=== PATIENT | male | born 2000 | race Caucasian/White ===

== ENCOUNTER → 2021-06-13 16:48 | Outpatient (CLI) | payer SELFPAY | PROVIDERS: PCP Family Medicine; Visit Provider Nurse Practitioner | DX: Z20.822 Contact with and (suspected) exposure to COVID-19 (principal) | CPT/HCPCS: C9803; U0003; U0005 ==

== ENCOUNTER 2022-10-22 19:21 | Emergency (ER) | payer BC, SELFPAY ==
[2022-10-22 19:35] VITALS: BP 126/68; PULSE 72; RESP 21; TEMP 36.5; O2SAT 97; BMI 28.8
--- NOTE | 2022-10-22 19:51 | EXP.UTC ---
Discharge Plan Disposition Patient Disposition: Home, Self-Care Condition: Good Prescriptions Prescriptions: New azithromycin [Zithromax Z-Catalino] 250 mg tablet See Rx Instructions .ROUTE .COMPLEX 5 Days Qty: 6 0RF Rx Instructions: For 250 mg dose pack: take 500 mg today (day 1), then 250 mg for 4 days (days 2-5) methylprednisolone [Medrol (Catalino)] 4 mg tablets,dose pack See Rx Instructions .Route .COMPLEX 6 Days Qty: 21 0RF Rx Instructions: taper pack; Referrals Follow up/Referrals: Emily Whitley [Primary Care Provider] - See instructions Activity Restrictions/Add. Instructions Additional Instructions/Restrictions: *Monitor Temp, Over the counter Motrin or Tylenol as directed/as needed Tylenol every 4 hours and Motrin every 6 hours (as long as your family doctor has told you that you can take it) for fever or pain. and straight to ER if unable to lower temp less than 101.0 after medication given *Warm salt water gargles may help to soothe the throat *Throat Lozenges? *Warm fluids like tea with honey may help to soothe the throat? *Sleep elevated *Humidifier/Vaporizer Make sure to go straight ER if any life threatening symptoms, stiffness in neck or confusion Your throat swab was sent for culture. Those results are typically sent to your primary care. Be sure to follow up in 2-3 days with your family doctor/primary care physician if no improvement so they can review those result and treat if necessary. If you don?t have a primary care doctor, I recommend you get one but in the mean time, you will have to return to a walk in clinic Follow up IMMEDIATELY for new or worsening symptoms or no Noticeable improvement over the next 48-72 hours. 911 for difficulty breathing or swallowing You were tested for today for Upper Respiratory Panel with COVID19 your test result should be back in the next 24-48 hours, you may check your results on the [facility] My Health Portal Clinical Impressions Clinical Impression: Sinusitis Qualifiers: Sinusitis location: unspecified location Chronicity: unspecified Qualified Code(s): J32.9 - Chronic sinusitis, unspecified Stand Alone Forms Stand Alone Forms: Work/School Release Instructions Patient Instructions: Sinusitis, DI for Sinusitis Discharge ED Provider: Chantell Bustamante [facility] [place] General Stated complaint: sore throat, jasmin Mode of Arrival: Ambulatory Source of Information: Patient Limitations: No Limitations Time Seen by Provider: 10/22/22 19:51 Description of Symptoms (Recalled from Triage Doc. by RN): PATIENT C/O HEADACHE, CONGESTION, CHILLS, SORE THROAT AND BODY ACHES THAT STARTED TODAY HEENT Symptoms (Recalled from RN notes): Yes Resp Symptoms (Recalled from RN notes): No Skin Symptoms (Recalled from RN notes): No MS Symptoms (Recalled from RN notes): No Functional Status (Recalled from RN notes): WNL History of Present Illness Provider Complaint: Patient states that he has been having sinus congestion and pressure for about a week on and off but Patient states that he woke up not feeling well States that he has been feeling achy, tired, body aches, headache, sore throat and chills and little dizziness here and there since this morning States that he has been feeling fatigued and over all not feeling well today and slept on and off most of the day States that he hasnt had fever that he is aware of but not checked it either States that he was around someone last week that had some kind of flu Related Data Previous Rx's Medication Instructions Recorded azithromycin 250 mg tablet See Rx Instructions PO .COMPLEX 5 10/22/22 (Zithromax Z-Catalino) days #6 tabs methylprednisolone 4 mg tablets in See Rx Instructions .Route 10/22/22 a dose pack (Medrol (Catalino)) .COMPLEX 6 days #21 tabs Allergies Allergy/AdvReac Type Severity Reaction Status Date / Time codeine Allergy Verified 10/22/22 19:51 diphenhydramine Allergy Verified 10/22/22 19:
[2022-10-22 20:02] LABS: UTC Strep Screen (Rapid) Negative (Negative)
[2022-10-22 20:05] VITALS: BP 126/68; PULSE 72; RESP 21; TEMP 36.5; O2SAT 97
[2022-10-22 20:05] LABS: Monoscreen (Rapid) Negative (Negative)
[2022-10-22 20:37] LABS: Bordetella Pertussis Not Detected (NotDetected); Chlamydophila Pneumoniae, PCR Not Detected (NotDetected); Coronavirus 19, PCR Not Detected (NotDetected); Coronavirus 229E Not Detected (NotDetected); Coronavirus NL63 Not Detected (NotDetected); Coronavirus OC43 Not Detected (NotDetected); Coronovirus HKU1,PCR Not Detected (NotDetected); Human Metapneumovirus Not Detected (NotDetected); Influenza A, PCR Not Detected (NotDetected); Influenza AH1, 2009 Not Detected (NotDetected); Influenza AH1, PCR Not Detected (NotDetected); Influenza AH3,PCR Not Detected (NotDetected); Influenza B, PCR Not Detected (NotDetected); Mycoplasma Pneumoniae, PCR Not Detected (NotDetected); Parainfluenza 1, PCR Not Detected (NotDetected); Parainfluenza 2, PCR Not Detected (NotDetected); Parainfluenza 3, PCR Not Detected (NotDetected); Parainfluenza 4, PCR Not Detected (NotDetected); Respiratory Syncytial Virus Not Detected (NotDetected)
[2022-10-22 20:38] LABS: Adenovirus,PCR Not Detected (NotDetected)
[2022-10-23 03:19] LABS: Rhinovirus/Enterovirus Detected (NotDetected)
== END 2022-10-22 20:31 | disposition home or self-care (01) ==
PROVIDERS: Emergency Provider Nurse Practitioner; PCP Family Medicine
DX: J32.9 Chronic sinusitis, unspecified (principal); B34.1 Enterovirus infection, unspecified
CPT/HCPCS: 86318; 87581; 87632; 87798; 87880; 99212; 99213; C9803; G0463; U0003; U0005

== ENCOUNTER 2025-08-06 22:03 | Emergency (ER) | payer BC, SELFPAY ==
--- OUTSIDE RECORDS SUMMARY | 2023-07-21 03:15 | XMS_ITS | Continuity of Care Document ---
Author Organization [facility] Address [address] [place] [address] Phone Care Team Providers Care Associate Professor Of Philosophy Name Role Phone Gama OD, Clair Unavailable Unavailable Allergies, Adverse Reactions, Alerts Substance Reaction Status Criticality DIPHENHYDRAMINE HCL Active No Infor mation penicillin G Active No Information PROCHLORPERAZINE MALEATE Active No Information PROCHLORPERAZINE EDISYLATE Active N o Information prochlorperazine Active No Informat ion codeine Active No Information Sulfa (Sulfonamide Antibiotics) Active No Information Medications Medication Instructions Dosage Effective Dates (start - stop) Status Comments No Drug Therapy Prescribed Procedures Procedure Date Cl Fit Basic REFRACTION COMPREHENSIVE EYE EXAM ESTAB PATIENT Jun REFRACTION COMPREHENSIVE EYE EXAM ESTAB PATIENT Jun OFFICE/OUTPATIENT VISIT, EST Advance Directives Directive Yes / No Effective Date File Name No Information Encounters Encounter Description Practice Location Reason(s) For Visit Diagnoses Date Provider Providers Copied on Encounter [facility], [address] [place], [place] [address], [address], tel:[phone] [facility] complete eye exam (chief complaint) Regular astigmatism of both eyes Oct-2 3 Malloy OD Clair. [address] [place], [place] [address], [place], [id number] , . tel:[phone] Referring Provider: Clair Malloy OD, [address] [place], [place] [address], [address] . tel:[phone] [facility], [address] [place] [address], [place], [facility], tel:[phone] [facility] blurry vision (chief complaint) Myopia, bilateralRegular astigmatism of both eyes Oct- 2 Malloy OD Clair. [address] [place] [address], [place] [address], [facility], [place], [address] [place] [address] , . tel:[phone] Referring Provider: Clair Malloy OD, [address], [facility] [place], [address] . tel:[phone] OFFICE/OUTPA TIENT VISIT, [facility], [address] [place] [address], [facility], [place], [facility], tel:[phone] [facility] Pain (chief complaint) Conjunctivitis, bacterial Sep- 2 Malloy OD Clair. [address], [place] [address], [facility], [place], [address] [place] [address] , . tel:[phone] Referring Provider: Clair Malloy OD, [address], [place], [address] . tel:[phone] Family History Family Member Type Diagnosis Age At Onset Mother Problem Diabetes mellitus Payers Payer name Insurance type Covered alliance party ID Lexus hastings(s) Shanna [facility] [id number] Social History Type Description Quantity Date Captured Comments Alcohol Use Details Unknown Caffeine Use Details Unknown Tobacco Use Status Current non-smoker Smoking Status Never smoker Non-Smoking Tobacco Use Details : No Details Available : No Details Available Sex Male Chief Complaint And Reason For Visit From encounter dated '07/21/2023 08:15'. complete eye exam (chief complaint). Description: The 22 year old patient presents for evaluation in the right eye and left eye. pt states his distance is a little blurry but has always been that way, pt is looking into getting contacts, he's had contacts before but it only was for about a week b/c he had to constantly use gtts for dry eyes, he does see flashes and floaters occasionally, he sees glares at nighttime occasionallydenies-headaches Reason For Referral Reason For Referral No Information Plan Of Treatment Date Type Action Status Patient Education Learning About Your Eye s completed Patient Education Learning About Your Eye s completed Patient Education Learning About Vision T ests completed History Of Present Illness Encounter Date Complaint History Of Prese nt Illness complete eye exam The 22 year ol d patient presents for evaluation in the right eye and left eye. pt states his distance is a little blurry but has always been that way, pt is looking into getting contacts, he's had contacts before but it only was for about a week b/c he had to constantly use gtts for dry eyes, he does see flashes and floaters occasionally, he sees glares at nighttime occasionallydenies-headaches blurry vision The 21 year old male presents for evaluation of blurry vision in the right eye and left eye. It started about 1 year(s) ago. It affects distance vision. The symptom is with glasses. The condition is unstable. The condition is described as blurring. Pt states NVA is stable. Pt states current glasses are broken. Pt states having flashes for many years. Pt states having floaters occasionally. Patient denies: eye pain. Pt states itching due to seasonal allergies. Pt denies redness, burning and tearing. Pt denies gtts. Pain The 21 year old female presents for evaluation of Pain in the right eye. It started 2 weeks ago. Pt states his right eye is in pain, itching, and tearing. Pt states there might be discharge coming from it. It effects vision and causes blurriness in OD. Patient denies: flashes, floaters and halos. Functional Status Date Functional Assessmen t No Information Medications Administered Medication Instructions Dosage Effective Dates (start - stop) Status Comments No Drug Therapy Prescribed Instructions Date Instruction Additional Infor rosas CALL OFFICE W ANY [facility] [address] MALLOY Related to Regular astigmatism of both eyes Impression/Plan Related to Regul ar astigmatism of both eyes Impression/Plan Related to Myopi a, bilateral Impression/Plan Related to Regul ar astigmatism of both eyes Impression/Plan Related to Conju nctivitis, bacterial Assessments Type Assessment Date assessment Regular astigmatism of both eyes impression Regular astigmatism of both eyes : H52.223 Patient Care Teams Name Effective Dates (start - stop) Status Members No Information
--- OUTSIDE RECORDS SUMMARY | 2024-01-25 08:35 | XMS_ITS | Encounter Summary ---
Author [facility] Address [address] [place] [phone] Care Team Providers Care Machine Plug Shaper Name Role Phone Provider, No Known Primary Care Provider Unavail able Encounter Details Date Type Department Care Team (Latest Contact Info) Description 01/25/2024 9:35 AM EDT Hospital Encounter [facility] PRIMARY CARE [address] [...] Results * XR Knee 3+ View With [place] Right (01/25/2024 9:46 AM EDT) Anatomical Region Laterality Modality Lower Extremities, Knee Right Computed Radiography 01/25/2024 3:49 PM EDT Impressions 01/25/2024 3:49 PM EDT Impression: Negative. Electronically Signed: Ce Peoples MD 01/25/2024 3:49 PM EDT Workstation ID: [id number] Narrative 01/25/2024 3:49 PM EDT XR KNEE [...] MD 01/25/2024 3:49 PM EDT Workstation ID: [id number] Jeffrey POP IMG DIAGNOSTIC IMAGING ORDER CARINA Final Result documented in this encounter Visit Diagnoses Diagnosis Acute pain of right knee documented in this encounter Care Teams Machine Plug Shaper Relationship Specialty Start Date End Date Provider, [place] [address] PCP - General 01/25/24 documented as of this encounter
--- OUTSIDE RECORDS SUMMARY | 2025-07-20 06:20 | XMS_ITS | Encounter Summary ---
Author Organization Healthcare Address [address] 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 Name Role Phone Leandra Kim APRN Primary Care Provider [phone] Reason for Referral * Consultation (Routine) - Authorized Specialty Diagnoses / Procedures Referred By Garima cobb Referred To Contact Sleep Medicine Diagnoses Restless sleeper Chronic fatigue Snores Sleep walking and eating Leandra Kim APRN [address] [facility] [address] [place] [address] Phone: tel: fax: Johnathan Rogers, DO [address] [place] [address] Phone: tel: fax: Referral ID Status Reason Start Date Expiration Date Visits Requested Visits Authorized [id number] Authorized Specialty Services Required 5 01/19/2027 1 1 Reason for Visit * Reason Comments Establish Care Sleep issues for awh ile and slow heart rate that no one can tell him why Encounter Details Date Type Department Care Team (Latest Contact Info) Description 07/20/2025 7:20 AM EDT Office Visit [facility] [address] [place] [address] Leandra Kim APRN [address] [place] [address] Healthcare maintenance (Primary Dx); Health care maintenance; Encounter for HCV screening test for low risk patient; Screening for human immunodeficiency virus; Insulin resistance; Dyspepsia; Restless sleeper; Chronic fatigue; Snores; Sleep walking and eating Social History Tobacco Use Types Packs/Day Years Used Date Smoking Tobacco: Never Smokeless Tobacco: Current Chew Tobacco Cessation:Ready to Q uit: No; Counseling Given: Yes Comments:Currently using nicotine pouches, slowly decreasing nicotine content Alcohol Use Standard Drinks/Week Comments Yes 1 (1 standard drink = 0.6 oz pur e alcohol) Rarly PHQ-2 Answer Date Recorded Patient Health Questionnaire-2 Score 0 07/20/2025 PHQ-9 Answer Date Recorded Patient Health Questionnaire-9 Score 3 07/20/2025 Humiliation, Afraid, Rape, and Kick questionnair e Answer Date Recorded Within the last year, have y ou been afraid of your partner or ex-partner? No 04/27/2025 Within the last year, have y ou been humiliated or emotionally abused in other ways by your partner or ex-partner? No Within the last year, have y ou been kicked, hit, slapped, or otherwise physically hurt by your partner or ex-partner? No 04/27/2025 Within the last year, have y ou been raped or forced to have any kind of sexual activity by your partner or ex-partner? No 04/27/2025 Hunger Vital Sign Answer Date Recorded Within the past 12 months, y ou worried that your food would run out before you got the money to buy more. Never true 04/27/20 25 Within the past 12 months, t he food you bought just didn't last and you didn't have money to get more. Never true 04/27/2025 PRAPARE - Transportation Answer Date Re corded In the past 12 months, has l ack of transportation kept you from medical appointments or from getting medications? No 03/30 In the past 12 months, has l ack of transportation kept you from meetings, work, or from getting things needed for daily living? No 04/27/2025 Housing Stability Vital Sign Answer Brendan e Recorded In the last 12 months, was t here a time when you were not able to pay the mortgage or rent on time? No 04/27/2025 In the past 12 months, how m any times have you moved where you were living? 1 04/27/2025 At any time in the past 12 m [facility], were you homeless or living in a long term (including now)? No 04/27/2025 Safety and Environment Answer Date Asad rded Do you worry that your child may have been physically abused? No 04/27/2025 Do you worry that your child may have been sexua lly abused? No 04/27/2025 Are there any guns kept in o r around your home or where your child spends time? No 04/27/2025 Guns Unloaded or Locked Away Not on file Utilities Answer Date Recorded In the past 12 months has [employer], gas, oil, or water [employer] threatened to shut off services in your home? No 04/27/2025 PHQ-2A Answer Date Recorded Patient Health Questionnaire-2 Score 4 08/26/2023 Comments No Sex and Gender Information Value Date Recorded Sex Assigned at Female 05/18/2023 2:03 PM EDT Legal Sex Male 6:47 AM EDT Gender Identity Transgender Male 05/18/2023 2:03 PM EDT Sexual Orientation Not on file documented as of this encounter Last Filed Vital Signs Vital Sign Reading Time Taken Comments Blood Pressure 112/75 07/20/2025 7:30 AM EDT Pulse 85 07/20/2025 7:30 AM EDT Temperature 36.7 C (98.1 F) 07/20/2025 7:30 AM EDT Respiratory Rate - - Oxygen Saturation 99% 07/20/2025 7:30 AM EDT Inhaled Oxygen Concentration - - Weight 85 kg (187 lb 6.3 oz) 07/20/2025 7:30 AM EDT Height 170.2 cm (5' 7 ) 07/20/2025 7:30 AM EDT Body Mass Index 29.35 07/20/2025 7:30 AM EDT documented in this encounter Functional Status * Over the past 2 weeks, how often have you been bothered by any of the following problems? Question Answer Date of Assessment Author Little interest or pleasure in doing things Not at all 07/20/2025 7:33 AM EDT Johnathan Taveras Feeling down, depressed, or hopeless Not at all 07/20/2025 7:33 AM Johnathan Lee Patient Health Questionnaire -2 Score 0 07/20/2025 7:33 AM Johnathan Lee * Question Answer Date of Assessment Author Trouble falling or staying asleep, or sleeping too much More than half the days 07/20/2025 7:33 AM Johnathan Lee Feeling tired or having little energy Several days 07/20/2025 7:33 AM Johnathan Lee Poor appetite or overeating Not at all 07/20/2025 7:33 AM Johnathan Lee Feeling bad about yourself - or that you are a failure or have let yourself or your family down Not at all 07/20/2025 7:33 AM Johnathan Lee Trouble concentrating on things, such as reading the newspaper or watching television Not at all 07/20/2025 7:33 AM Johnathan Lee Moving or speaking so slowly that other people could have noticed? Or the opposite - being so fidgety or restless that you have been moving around a lot more than usual. Not at all 07/20/2025 7:33 AM Johnathan Lee Thoughts that you would be better off or hurting yourself in some way Not at all 07/20/2025 7:33 AM Johnathan Lee Patient Health Questionnaire-9 Score 3 07/20/2025 7:33 AM Johnathan Lee * Calculated C-SSRS Risk Score (Lifetime/Recent) Answer Date of Assessment Author No Risk Indicated 07/20/2025 7:36 AM Johnathan Lee * How difficult have these problems made it for you to do your work, take care of things at home, or get along with other people? Answer Date of Assessment Author Not difficult at all 07/20/2025 7:33 AM Johnathan Nayak * Question Answer Date of Assessment Author 1. Wish to be (Past 1 Month) No 7:36 AM Johnathan Lee 2. Non-Specific Active Suici concetta Thoughts (Past 1 Month) No 07/20/2025 7:36 AM Johnathan Lee 6. Suicidal Behavior (Lifetime) No 7:36 AM Johnathan Lee documented as of this encounter Miscellaneous Notes * Progress Notes - Leandra Kim, BROWN STOCK WASHER - 07/20/2025 7:20 AM EDT Subjective Tyler Sanchez 24 yo transgender male Preferred pronouns he/him History of Present Illness Mr. Sanchez is 24 y.o. adult who presents today as a new patient to establish care. PMH significant for: Gastritis, Glenoid Labrum Tear, Closed Fx left proximal humerus (skate board accident), Gender Dysphoria, Hypogonadism, Mood Disorder PSH-Hysterectomy, Mastectomy, Reading Teeth, Cholecystectomy, Lt Knee Arthroscopy FH-Mother DM, Mental Illness, CVA, Depression; MGM DM, CKD; MGF DM SH- Smoking/vaping/chewing-Currently nicotine pouches, 9 mg/pouch (down from 30 mg/pouch) ETOH-rarely Recreational Drugs-none Marital status: single Sexually active w/ male/female partners in the past, not currently STI testing not desired Children-none Mood described as good, feels stable PHQ-9 score 3, not difficult at all FRANCESCO-7 score 4, somewhat difficult Counseling-none currently, feels well supported w/ family and friends. He has been under the care of Dr. Beth at [facility] for his transition and primary care needs, with his last visit occurring a few months ago. 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 No recent dental visits, has insurance for care. His last eye exam was 3 to 4 years ago, and he acknowledges the need for new glasses. He does not usually get the flu vaccine because he doesn't usually pursue it. He is not taking any other Rx medications besides testosterone but has started taking a multivitamin, magnesium, fish oil, and ashwagandha supplements. He has been experiencing intermittent bradycardia, with heart rates dropping into the 30s as recorded by his watch and a heart monitor worn for 2 weeks. This occurred during his second shift supervisor work hours when he was awake. A few months ago, he was sent to the hospital due to an alert from his watch indicating possible atrial fibrillation (A-fib). He was referred to a unix system administrator at [facility], where he underwent an echocardiogram and was placed on another heart monitor. He does not plan to revisit this unix system administrator. He occasionally snores and never feels rested after sleep, leading to constant fatigue. Despite high caffeine intake, he remains tired and often needs to nap. He does not worry about falling asleep while driving. He experiences intermittent headaches upon waking and is unaware of any teeth clenching or grinding. He has lost weight recently due to dietary changes and gym workouts. A sleep study conducted last year showed no GÉNESIS, but no cause was identified was identified for his fatigue and sleep struggles. He reports sleep walking and eating. He has restless legs and has tried various sleep aids, including melatonin and prescription medications, without success. These either do not work or cause prolonged sleep of 12 to 18 hours. His sleep did not improve while on mood medications. His sleep pattern varies, sometimes waking up every hour or two, and other times sleeping through the night. He experiences stomach pain after eating, along with heartburn and cramping, described as chronic. Despite undergoing endoscopy and colonoscopy, no abnormalities were found. The last scope was performed 4 to 5 years ago when he was 20. He is unsure if he was tested for H. pylori. Buspirone did not alleviate his stomach symptoms. 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 Visit Vitals OB Status Injection Smoking Status Never Past Medical History[1] Surgical History[2] Family History[3] Social History Substance and Sexual Activity Sexual Activity Yes Partners: Nonbinary Tobacco Use History[4] Current Outpatient Medications Medication Instructions albendazole (Albenza) 200 MG tablet Take 1 tab PO now; take 2nd in 2 weeks busPIRone (BUSPAR) 15 mg, Oral, 2 times daily diclofenac (VOLTAREN) 2-4 g, Transdermal, 3 times daily, Apply as directed to left elbow DULoxetine (CYMBALTA) 30 mg, Oral, Daily, Do not crush or chew. lamoTRIgine (LAMICTAL) 100 mg, Oral, Daily Needle, Disp, 21G X 1 misc Use to draw up hormone as directed Syringe/Needle, Disp, (B-D 3CC LUER-OLVIN SYR 25GX5/8 ) 25G X 5/8 3 ML misc Use to inject hormone asdirected testosterone cypionate (Depo-Testosterone) 200 MG/ML injection Inject 60mg (0.3mL) subcutaneous every weeks Allergies[5] Medications Reviewed MIPS/MU:[id number]:: All medications have been reviewed today. Review of Systems Constitutional: Positive for fatigue. HENT: Negative. Respiratory: Negative. Cardiovascular: Negative. Gastrointestinal: See HPI Genitourinary: Negative. Musculoskeletal: Negative. Neurological: Negative. Psychiatric/Behavioral: Positive for sleep disturbance (see HPI). Objective There were no vitals filed for this visit. Physical Exam Vitals and nursing note reviewed. Constitutional: General: He is not in acute distress. Appearance: Normal appearance. He is normal weight. He is not ill-appearing. HENT: Head: Normocephalic and atraumatic. Right Ear: Tympanic membrane, ear canal and external ear normal. Left Ear: Tympanic membrane, ear canal and external ear normal. Mouth/Throat: Mouth: Mucous membranes are moist. Comments: Mallampati II/IV Eyes: General: No scleral icterus. Conjunctiva/sclera: Conjunctivae normal. Pupils: Pupils are equal, round, and reactive to light. Neck: Thyroid: No thyroid mass, thyromegaly or thyroid tenderness. Cardiovascular: Rate and Rhythm: Normal rate and regular rhythm. Heart sounds: Normal heart sounds. Comments: Neg for peripheral edema Pulmonary: Effort: Pulmonary effort is normal. Breath sounds: Normal breath sounds. Abdominal: General: Abdomen is flat. Bowel sounds are normal. There is no distension. Palpations: Abdomen is soft. Tenderness: There is no abdominal tenderness. Musculoskeletal: General: Normal range of motion. Cervical back: Normal range of motion and neck supple. Lymphadenopathy: Cervical: No cervical adenopathy. Skin: General: Skin is warm and dry. Capillary Refill: Capillary refill takes less than 2 seconds. Neurological: General: No focal deficit present. Mental Status: He is alert and oriented to person, place, and time. Psychiatric: Mood and Affect: Mood normal. Behavior: Behavior normal. Thought Content: Thought content normal. Judgment: Judgment normal. Assessment & Plan Overall well appearing. 1. Bradycardia. - Intermittent, asymptomatic bradycardia is not typically concerning, and is not uncommon during sleep or with higher levels of physical conditioning. -Given his age and structurally normal heart, atrial fibrillation is unlikely. - The absence of symptoms such as dizziness or presyncope suggests that this is not an urgent issue. - A release of records will be obtained from [facility] for further evaluation. 2. Suspected sleep disorder. - The patient reports occasional snoring, never feeling rested after sleep, and always feeling tired. - A referral to sleep medicine will be made for further evaluation for sleep disorder other than GÉNESIS. 3. Dyspepsia - The patient experiences stomach pain and cramping after eating, with occasional heartburn. - A stool sample will be collected for H. pylori testing. - If the result is negative, the patient may consider starting Elavil or Bentyl to alleviate abdominal symptoms. 4. Health maintenance. - The patient is advised to receive the influenza vaccine when available. A comprehensive set of labs will be ordered, including blood counts, metabolic panel, kidney and liver function tests, electrolytes, folate, A1c, hepatitis A and B immunity status, hepatitis C and HIV screening, iron, cholesterol, thyroid, B12, and D levels. The patient is also advised to discontinue fish oil prior to any surgical procedures due to its potential to increase bleeding risk. -Counseled on good dental hygiene and routine preventive dental care, especially with use of nicotine (chew or pouches currently). Encouraged in his efforts at reduction, and complete cessation advised. -Flu IMZ at his discretion if desired. -He will continue w/ the [facility] for his testosterone. -Mood stable off meds, will continue to monitor. Follow-up: The patient will follow up in 3 to 4 months to above issues. Verbalizing understanding and agreement w/ plan. Verbal consent was obtained to use ambient listening technology to assist in the documentation of the encounter: yes Leandra Kim APRN [1] No past medical history on file. [2] Past Surgical History: Procedure Laterality Date HYSTERECTOMY Bilateral [3] Family History Problem Relation Name Age of Onset Depression Mother Sheryl Diabetes Mother Sheryl Learning disabilities Mother Sheryl Mental illness Mother Sheryl Stroke Mother Sheryl Diabetes Maternal Grandfather Aiden Diabetes Maternal Grandmother Karla Kidney disease Maternal Grandmother Karla [4] Tobacco Use Smoking Status Never Smokeless Tobacco Current Types: Chew Tobacco Comments Currently chews tobacco [5] Allergies Allergen Reactions Benadryl [Diphenhydramine] Other - please document in the comment field Excessive hyperactivity Codeine Itching Penicillins Itching and Nausea And Vomiting Prochlorperazine Other - please document in the comment field akathesia Gets severely agitated Sertraline Hallucinations and Other - please document in the comment field Anger and auditory hallucinations Sulfa Drugs Hives, Shortness of breath and Swelling Oxycodone-Acetaminophen Nausea And Vomiting Latex Rash documented in this encounter Plan of Treatment Upcoming Encounters Date Type Department Care Team (Late st Contact Info) Description 11/20/2025 9:00 AM EST Office Visit [facility] [address] [place] [address] Leandra Kim APRN [address] [facility] [address] [place] [address] Scheduled Orders Name Type Priority Associated Diagnoses Orde r Schedule Helicobacter pylori Antigen Microbiology Routine Dyspepsia Expected: 07/20/2025 (Approximate), Expires: 01/21/2027 Scheduled Referrals Name Type Priority Associated Diagnoses Order Schedule Ambulatory referral to Adult Sleep Medicine Outpatient Referral Routine Restless sleeper Chronic fatigue Snores Sleep walking and eating Expected: 07/20/2025 (Approximate), Expires: 01/18/2027 documented as of this encounter Results * Hemoglobin A1c (08/01/2025 8:40 AM EST) Hemoglobin A1c 5.3 <5.7 % 08/01/2025 5:15 PM EST [facility] Blood Venous blood specimen / Unknown Venipuncture / Unknown 08/01/2025 8:40 AM EST 08/01/2025 1:48 PM EST Narrative [facility] - 08/01/2025 5:15 PM EST HA1C Interpretive Data: Diagnosis of Diabetes: Diabetic > or = 6.5% Pre-diabetic 5.7 to 6.4% Non-diabetic < or = 5.6% Glycemic Targets for Type I and Type II Diabetics: Non- Adults <7.0% Adults <6.0% Children and Adolescents <7.5% Source: [place] [employer]. Standards of medical care in diabetes,2017. Diabetes Care.2017:40 (suppl 1):S1-S135. [facility] BLOOD ORDERABLES Final Re sult Performing Organization Address [facility] Co de Phone Number [facility] [address] [place] [address] * Vitamin D 25 Hydroxy (08/01/2025 8:40 AM EST) Vitamin D 25 Hydroxy 45.5 20.0 - 80.0 ng/mL 08/01/2025 2:55 PM EST [facility] Blood Venous blood specimen / Unknown Venipuncture / Unknown 08/01/2025 8:40 AM EST 08/01/2025 1:46 PM EST Narrative [facility] - 08/01/2025 2:55 PM EST Testing performed on [employer] Collateral Clerk, standardized against NIST SRM 2972. When testing samples from patients whose predominant form of vitamin D is vitamin D2, such as patients receiving vitamin D2 supplementation, results that are subtherapeutic should be confirmed with another method, such as LC-MS/MS, before being used for patient management. Vitamin D, 25-Hydroxy reference range, age 18 years and up: Deficiency: <12 ng/mL Insufficiency: 12 to 19 ng/mL Sufficiency: 20 to 80 ng/mL Possible toxicity: >100 ng/mL [facility] LAB BLOOD ORDERABLES Final Re sult Performing Organization Address [facility] Co de Phone Number [facility] [address] [place] [address] * Vitamin B12, Serum (08/01/2025 8:40 AM EST) Vitamin B12, Serum 907 210 - 1,033 pg/mL 08/01/2025 2:35 PM EST [facility] Blood Venous blood specimen / Unknown Venipuncture / Unknown 08/01/2025 8:40 AM EST 08/01/2025 1:53 PM EST [facility] BR[employer] STOCK WASHER LAB BLOOD ORDERABLES Final Re sult Performing Organization Address [facility]/ZIP Co de Phone Number [facility] [address] [place] [address] * TSH Reflex FT4 (08/01/2025 8:40 AM EST) Thyroid Stimulating Hormone, Plasma 1.67 0.40 - 4.20 uIU/mL 08/01/2025 2:17 PM EST [facility] Blood Venous blood specimen / Unknown Venipuncture / Unknown 08/01/2025 8:40 AM EST 08/01/2025 1:47 PM EST [facility] LAB BLOOD ORDERABLES Final Re sult Performing Organization Address City/[facility]/ZIP Co de Phone Number [facility] [address] [place] [address] * (ABNORMAL) Lipid Profile, Plasma (08/01/2025 8:40 AM EST) Cholesterol, Plasma 194 <200 mg/dL 08/01/2025 2:17 PM EST [facility] Comment: Cholesterol Reference Range (age >17 years): Desirable <200 mg/dL Borderline 200 to 239 mg/dL Undesirable >239 mg/dL HDL 75 >=40 mg/dL 08/01/2025 2:17 PM EST [facility] Comment: HDL Cholesterol Reference Ranges (age >17 years): Female, acceptable > or = 50 mg/dL Male, acceptable > or = 40 mg/dL Triglycerides, Plasma 25 <150 mg/dL 08/01/2025 2:17 PM EST [facility] Comment: Triglyceride Reference Range (age >17 years): Desirable: <150 mg/dL Borderline high: 150 to 199 mg/dL High: 200 to 499 mg/dL Very high: >499 mg/dL Increased risk of pancreatitis: >1000 mg/dL Cholesterol/HDL Ratio 3 08/01/2025 2:17 PM EST [facility] LDL, Calculated 114(H) <100 mg/dL 2:17 PM EST [facility] Comment: LDL Cholesterol Reference Range (age >17 years): Optimal: <100 mg/dL Near or above optimal: 100 - 129 mg/dL Borderline high: 130 - 159 mg/dL High: 160 - 189 mg/dL Very high: >189 mg/dL LDL Cholesterol Reference Range (age <18 years): Desirable: <110 mg/dL Borderline: 110 - 129 mg/dL Undesirable: >130 mg/dL LDL Cholesterol is calculated using the Pop/NIH equation. Fasting greater than or equal to 12 hours? Yes 08/01/2025 2:17 PM EST [facility] Blood Venous blood specimen / Unknown Venipuncture / Unknown 08/01/2025 8:40 AM EST 08/01/2025 1:47 PM EST Leandra Kim BROWN STOCK WASHER LAB BLOOD ORDERABLES Final Re sult [facility] [address] [place] [address] * Iron & Total Iron Binding Capacity, Plasma (Includes Transferrin) (08/01/2025 8:40 AM EST) Iron, Plasma 77 50 - 170 ug/dL 08/01/2025 2:17 PM EST [facility] Transferrin, Plasma 277 200 - 360 mg/dL 08/01/2025 2:17 PM EST [facility] Total Iron Binding Capacity, Plasma 346 240 - 450 ug/mL 08/01/2025 2:17 PM EST [facility] Transferrin Saturation 22 14 - 50 % 08/01/2025 2:17 PM EST [facility] Blood Venous blood specimen / Unknown Venipuncture / Unknown 08/01/2025 8:40 AM EST 08/01/2025 1:47 PM EST [facility] STOCK W[facility] LAB BLOOD ORDERABLES Final Re sult [facility] [address] [place] [address] * Hepatitis C Antibody w/Reflex to HCV Quant PCR (08/01/2025 8:40 AM EST) Hepatitis C Antibody Negative Negative 08/01/2025 2:31 PM EST [facility] Blood Venous blood specimen / Unknown Venipuncture / Unknown 08/01/2025 8:40 AM EST 08/01/2025 1:52 PM EST [facility] W[facility] LAB BLOOD ORDERABLES Final Re sult Performing Organization Address City/[facility]/ZIP Co de Phone Number [facility] [address] [place] [address] * Hepatitis B Surface Antigen (08/01/2025 8:40 AM EST) Hepatitis B Surf Antigen Negative Negative 08/01/2025 4:44 PM EST [facility] Blood Venous blood specimen / Unknown Venipuncture / Unknown 08/01/2025 8:40 AM EST 08/01/2025 1:53 PM EST [facility] W[facility] LAB BLOOD ORDERABLES Final Re sult Performing Organization Address [facility] Co de Phone Number [facility] [address] [place] [address] * (ABNORMAL) Hepatitis B Surface Antibody, Quantitative (08/01/2025 8:40 AM EST) Hepatitis B Surface Antibody, Quantitative 38.15(H) NonReacti ve: <8, Grayzone: 8 - <12, Reactive: >= 12 mIU/mL 08/01/2025 4:44 PM EST [facility] Comment: Reactive. Individual is considered immune to HBV infection. Blood Venous blood specimen / Unknown Venipuncture / Unknown 08/01/2025 8:40 AM EST 08/01/2025 1:53 PM EST Leandra Kim [employer] LAB BLOOD ORDERABLES Final Re sult [facility] [address] [place] [address] * Hepatitis B Core Antibody IgM (08/01/2025 8:40 AM EST) Hepatitis B Core Antibody IgM Negative Negative 08/01/2025 4:44 PM EST [facility] Blood Venous blood specimen / Unknown Venipuncture / Unknown 08/01/2025 8:40 AM EST 08/01/2025 1:53 PM EST [facility] [employer] LAB BLOOD ORDERABLES Final Re sult Performing Organization Address City/[facility]/ZIP Co de Phone Number [facility] [address] [place] [address] * (ABNORMAL) Hepatitis A Antibody IgG (08/01/2025 8:40 AM EST) Pathologist [facility] Hepatitis A Antibody IgG Positive(A ) Negative 08/01/2025 4:44 PM EST [facility] Blood Venous blood specimen / Unknown Venipuncture / Unknown 08/01/2025 8:40 AM EST 08/01/2025 1:53 PM EST [facility] [employer] LAB BLOOD ORDERABLES Final Re sult Performing Organization Address City/[facility]/ZIP Co de Phone Number [facility] [address] [place] [address] * Folate, Serum (08/01/2025 8:40 AM EST) Pathologist [facility] Folate, Serum 12.1 >4.6 ng/mL 08/01/2025 2:35 PM EST [facility] Blood Venous blood specimen / Unknown Venipuncture / Unknown 08/01/2025 8:40 AM EST 08/01/2025 1:53 PM EST [facility] [employer] LAB BLOOD ORDERABLES Final Re sult Performing Organization Address City/[facility]/ZIP Co de Phone Number [facility] [address] [place] [address] * Comprehensive Metabolic Panel, Plasma (08/01/2025 8:40 AM EST) Glucose, Plasma 85 74 - 99 mg/dL 08/01/2025 2:17 PM EST [facility] BUN, Plasma 12 7 - 21 mg/dL 08/01/2025 2:17 PM [facility] Creatinine, Plasma 0.86 0.70 - 1.20 mg/dL 08/01/2025 2:17 PM [facility] BUN/Creatinine Ratio 14 08/01/2025 2:17 PM [facility] Sodium, Plasma 140 136 - 145 mmol/L 08/01/2025 2:17 PM [facility] Potassium, Plasma 3.9 3.6 - 4.9 mmol/L 08/01/2025 2:17 PM [facility] Chloride, Plasma 104 97 - 107 mmol/L 08/01/2025 2:17 PM [facility] CO2, Plasma 25 22 - 29 mmol/L 08/01/2025 2:17 PM [facility] Anion Gap 11 6 - 16 mmol/L 08/01/2025 2:17 PM [facility] Total Calcium, Plasma 9.9 8.9 - 10.2 mg/dL 08/01/2025 2:17 PM [facility] Total Protein 7.6 6.3 - 7.9 g/dL 08/01/2025 2:17 PM [facility] Albumin, Plasma 4.5 3.5 - 5.2 g/dL 08/01/2025 2:17 PM [facility] AST, Plasma 24 10 - 50 U/L 08/01/2025 2:17 PM [facility] ALT, Plasma 18 10 - 50 U/L 08/01/2025 2:17 PM [facility] Alkaline Phosphatase, Plasma 97 40 - 115 U/L 08/01/2025 2:17 PM [facility] Total Bilirubin, Plasma 0.7 0.2 - 1.1 mg/dL 08/01/2025 2:17 PM [facility] eGFRcr 122.5 mL/min/1.7 3m*2 08/01/2025 2:17 PM [facility] Comment:Reported eGFRcr in m L/min/1.73m2 is based the CKD-EPI 2020 equation that does not use a race coefficient. Blood Venous blood specimen / Unknown Venipuncture / Unknown 08/01/2025 8:40 AM EST 08/01/2025 1:47 PM EST us Leandra Kim [employer] LAB BLOOD ORDERABLES Final Re sult [facility] [address] [place] [address] * (ABNORMAL) CBC and Differential (08/01/2025 8:40 AM EST) WBC Count 6.82 3.70 - 10.30 10*3/uL LAB HEMATOLOGY METHOD 08/01/2025 1:58 PM EST [facility] RBC Count 4.86 4.60 - 6.10 10*6/uL LAB HEMATOLOGY METHOD 08/01/2025 1:58 PM EST [facility] HGB 13.5(L) 13.7 - 17.5 g/dL LAB HEMATOLOGY METHOD 08/01/2025 1:58 PM EST [facility] HCT 42.8 40.0 - 51.0 % LAB HEMATOLOGY METHOD 08/01/2025 1:58 PM EST [facility] Platelet Count 296 155 - 369 10*3/uL LAB HEMATOLOGY METHOD 08/01/2025 1:58 PM EST [facility] MCV 88 79 - 98 fL LAB HEMATOLOGY METHOD 08/01/2025 1:58 PM EST [facility] MCH 27.8 26.0 - 32.0 pg LAB HEMATOLOGY METHOD 08/01/2025 1:58 PM EST [facility] MCHC 31.5 30.7 - 35.5 g/dL LAB HEMATOLOGY METHOD 08/01/2025 1:58 PM EST [facility] RDW 12.6 11.5 - 14.5 % LAB HEMATOLOGY METHOD 08/01/2025 1:58 PM EST [facility] MPV 10.5 8.8 - 12.5 fL LAB HEMATOLOGY METHOD 08/01/2025 1:58 PM EST [facility] nRBC 0.0 <=0.0 per 100 WBCs LAB HEMATOLOGY METHOD 08/01/2025 1:58 PM EST [facility] Differential Type Automated LAB HEMATOLOGY METHOD 08/01/2025 1:58 PM EST [facility] Neutrophils % 58 % LAB HEMATOLOGY METHOD 08/01/2025 1:58 PM EST [facility] Lymphocytes % 34 % LAB HEMATOLOGY METHOD 08/01/2025 1:58 PM EST [facility] Monocytes % 6 % LAB HEMATOLOGY METHOD 08/01/2025 1:58 PM EST [facility] Eosinophils % 1 % LAB HEMATOLOGY METHOD 08/01/2025 1:58 PM EST [facility] Basophils % 1 % LAB HEMATOLOGY METHOD 08/01/2025 1:58 PM EST [facility] Immature Granulocytes % 0 % LAB HEMATOLOGY METHOD 08/01/2025 1:58 PM EST [facility] Neutrophils Absolute 3.90 1.60 - 6.10 10*3/uL LAB HEMATOLOGY METHOD 08/01/2025 1:58 PM EST [facility] Lymphocytes Absolute 2.34 1.20 - 3.90 10*3/uL LAB HEMATOLOGY METHOD 08/01/2025 1:58 PM EST [facility] Monocytes Absolute 0.42 0.30 - 0.90 10*3/uL LAB HEMATOLOGY METHOD 08/01/2025 1:58 PM [facility] Eosinophils Absolute 0.09 0.00 - 0.50 10*3/uL LAB HEMATOLOGY METHOD 08/01/2025 1:58 PM EST [facility] Basophils Absolute 0.05 0.00 - 0.10 10*3/uL LAB HEMATOLOGY METHOD 08/01/2025 1:58 PM EST [facility] Immature Granulocytes Absolute 0.02 0.00 - 0.06 10*3/uL LAB HEMATOLOGY METHOD 08/01/2025 1:58 PM [facility] Blood Venous blood specimen / Unknown Venipuncture / Unknown 08/01/2025 8:40 AM EST 08/01/2025 1:48 PM EST [facility] 08/01/2025 1:58 PM EST Therapeutic decision making should be based on absolute values, rather than percentages. us Leandra Kim [employer] LAB BLOOD ORDERABLES Final Re sult [facility] [address] [place] [address] documented in this encounter Visit Diagnoses Diagnosis Healthcare maintenance- Primary Health care maintenance Encounter for HCV screening test for low risk patient Screening for human immunodeficiency virus Special screening examination for other specified viral diseases Insulin resistance Other abnormal glucose Dyspepsia Dyspepsia and other specified disorders of function of stomach Restless sleeper Chronic fatigue Other malaise and fatigue Snores Other dyspnea and respiratory abnormality Sleep walking and eating documented in this encounter Additional Health Concerns Assessment Noted Time PHQ-9 Depression Total Score: 3 07/20/20 7:33 AM EDT A fall risk assessment has been complete d for the patient 06/14/2024 8:16 PM EDT A Body Mass Index follow-up plan has been documented for the patient 07/20/2025 9:53 AM EDT documented as of this encounter Care Teams [employer] Relationship Specialty Start Date End Date Leandra Kim APRN [address] [place] [phone] PCP - General Family Medicine 07/20/25 documented as of this encounter
--- OUTSIDE RECORDS SUMMARY | 2025-08-01 08:20 | XMS_ITS | Encounter Summary ---
Author Organization Healthcare Address [address] [place] [address] Care Team Providers Care Railroad Carman Name Role Phone Leandra Kim IRIS Primary Care Provider [phone] Encounter Details Date Type Department Care Team (Latest Contact Info) Description 08/01/2025 8:20 AM EST Clinical Support [facility] [address] [place] [address] Healthcare maintenance; Health care maintenance; [...] any time in the past 12 m [facility], were you homeless or living in a [place] health care facility (including now)? No 04/27/2025 Safety and Environment [...] the past 12 months has th e [employer], gas, oil, or water [employer] threatened to shut off services in your home? No 04/27/2025 PHQ-2A Answer Date Recorded Patient Health Questionnaire-2 Score 4 08/26/2023 Comments No Sex and Gender Information Value Date Recorded Sex Assigned at Female 05/18/2023 2:03 PM EDT Legal Sex Male 6:47 AM EDT Gender Identity Transgender Male 05/18/2023 2:03 PM EDT Sexual Orientation Not on file documented as of this encounter Miscellaneous Notes * Clinician Note - Sheree Matson RN - 08/01/2025 8:20 AM EST Patient presents for labs today. Drawn from left antecubital. No problems noted. documented in this encounter Plan of Treatment Upcoming Encounters Date Type Department Care Team (Late st Contact Info) Description 11/20/2025 9:00 AM EST Office Visit [facility] [address] [place] [address] Leandra Kim, IRIS [address] [place] [address] documented as of this encounter [...] 8:40 AM EST Health care maintenance HEPATITIS B CORE ANTIBODY IGM Routine 08/01/2025 8:40 AM EST Health care maintenance VITAMIN D 25 HYDROXY Routine 08/01/2025 8:40 AM EST Healthcare maintenance HEPATITIS B SURFACE ANTIGEN Routine 08/01/2025 8:40 AM EST Health care [...] Reactive Non Reactive 08/01/2025 2:31 PM EST [facility] Comment:Screening for HIV 1 & 2 antibodies, and P24 antigen is NONREACTIVE. No confirmatory testing is required. Blood Venous blood specimen / Unknown Venipuncture / Unknown 08/01/2025 8:40 AM EST 08/01/2025 1:53 PM EST us Leandra Kim ENDOSCOPY REGISTERED NURSE LAB BLOOD ORDERABLES Final Re sult [facility] [address] [place] [address] * Hemoglobin A1c (08/01/2025 8:40 AM EST) Hemoglobin A1c 5.3 <5.7 % 08/01/2025 5:15 PM EST [facility] Blood Venous blood specimen / Unknown Venipuncture / Unknown 08/01/2025 8:40 AM EST 08/01/2025 1:48 PM EST Narrative [facility] - 08/01/2025 5:15 PM EST HA1C Interpretive Data: Diagnosis of Diabetes: Diabetic > or = 6.5% Pre-diabetic 5.7 to 6.4% Non-diabetic < or = 5.6% Glycemic Targets for Type I and Type II Diabetics: Non- Adults <7.0% Adults <6.0% Children and Adolescents <7.5% Source: [place] [employer]. Standards of medical care in diabetes,2017. Diabetes Care.2017:40 (suppl 1):S1-S135. [employer] ENDOSCOPY REGISTERED NURSE LAB BLOOD ORDERABLES Final Re sult Performing Organization Address City/[facility] Co de Phone Number [facility] [address] [place] [address] * Vitamin D 25 Hydroxy (08/01/2025 8:40 AM EST) Vitamin D 25 Hydroxy 45.5 20.0 - 80.0 ng/mL 08/01/2025 2:55 PM EST [facility] Blood Venous blood specimen / Unknown Venipuncture / Unknown 08/01/2025 8:40 AM EST 08/01/2025 1:46 PM EST Narrative [facility] - 08/01/2025 2:55 PM EST Testing performed on [employer], standardized against NIST SRM [id number]. When testing [...] to 80 ng/mL Possible toxicity: >100 ng/mL [employer] ENDOSCOPY REGISTERED NURSE LAB BLOOD ORDERABLES Final Re sult Performing Organization Address [facility]/ZIP Co de Phone Number [facility] [address] [place] [address] * Vitamin B12, Serum (08/01/2025 8:40 AM EST) Vitamin B12, Serum 907 210 - 1,033 pg/mL 08/01/2025 2:35 PM EST [facility] Blood Venous blood specimen / Unknown Venipuncture / Unknown 08/01/2025 8:40 AM EST 08/01/2025 1:53 PM EST [facility] ENDOSCOPY REGISTERED NURSE LAB BLOOD ORDERABLES Final Re sult Performing Organization Address [facility] Co de Phone Number [facility] [address] [place] [address] * TSH Reflex FT4 (08/01/2025 8:40 AM EST) Thyroid Stimulating Hormone, Plasma 1.67 0.40 - 4.20 uIU/mL 08/01/2025 2:17 PM EST [facility] Blood Venous blood specimen / Unknown Venipuncture / Unknown 08/01/2025 8:40 AM EST 08/01/2025 1:[address] [facility] Final Re sult Performing Organization Address City/[facility] Co de Phone Number [facility] [address] [place] [address] * (ABNORMAL) Lipid Profile, Plasma (08/01/2025 8:40 AM EST) Cholesterol, Plasma 194 <200 mg/dL 08/01/2025 2:17 PM EST [facility] Comment: Cholesterol Reference Range (age >17 years): Desirable <200 mg/dL Borderline 200 to 239 mg/dL Undesirable >239 mg/dL HDL 75 >=40 mg/dL 08/01/2025 2:17 PM EST [facility] Comment: HDL Cholesterol Reference Ranges (age >17 years): Female, acceptable > or = 50 mg/dL Male, acceptable > or = 40 mg/dL Triglycerides, Plasma 25 <150 mg/dL 08/01/2025 2:17 PM EST [facility] Comment: Triglyceride Reference Range (age >17 years): Desirable: <150 mg/dL Borderline high: 150 to 199 mg/dL High: 200 to 499 mg/dL Very high: >499 mg/dL Increased risk of pancreatitis: >1000 mg/dL Cholesterol/HDL Ratio 3 08/01/2025 2:17 PM EST [facility] LDL, Calculated 114(H) <100 mg/dL 2:17 PM EST [facility] Comment: LDL Cholesterol Reference Range [...] 12 hours? Yes 08/01/2025 2:17 PM EST [facility] Blood Venous blood specimen / Unknown Venipuncture / Unknown 08/01/2025 8:40 AM EST 08/01/2025 1:47 PM EST Leandra Kim ENDOSCOPY REGISTERED NURSE LAB BLOOD ORDERABLES Final Re sult [facility] [address] [place] [address] * Iron & Total Iron Binding Capacity, Plasma (Includes Transferrin) (08/01/2025 8:40 AM EST) Iron, Plasma 77 50 - 170 ug/dL 08/01/2025 2:17 PM EST [facility] Transferrin, Plasma 277 200 - 360 mg/dL 08/01/2025 2:17 PM EST [facility] Total Iron Binding Capacity, Plasma 346 240 - 450 ug/mL 08/01/2025 2:17 PM EST [facility] Transferrin Saturation 22 14 - 50 % 08/01/2025 2:17 PM EST [facility] Blood Venous blood specimen / Unknown Venipuncture / Unknown 08/01/2025 8:40 AM EST 08/01/2025 1:47 PM EST Leandra Kim ENDOSCOPY REGISTERED NURSE LAB BLOOD ORDERABLES Final Re sult Performing Organization Address City/[facility]/ZIP Co de Phone Number [facility] [address] [place] [address] * Hepatitis C Antibody w/Reflex to HCV Quant PCR (08/01/2025 8:40 AM EST) Hepatitis C Antibody Negative Negative 08/01/2025 2:31 PM EST [facility] Blood Venous blood specimen / Unknown Venipuncture / Unknown 08/01/2025 8:40 AM EST 08/01/2025 1:52 PM EST [facility] ENDOSCOPY REGISTERED NURSE LAB BLOOD ORDERABLES Final Re sult Performing Organization Address [facility] Co de Phone Number [facility] [address] [place] [address] * Hepatitis B Surface Antigen (08/01/2025 8:40 AM EST) Hepatitis B Surf Antigen Negative Negative 08/01/2025 4:44 PM EST [facility] Blood Venous blood specimen / Unknown Venipuncture / Unknown 08/01/2025 8:40 AM EST 08/01/2025 1:[address] [facility] [facility] Final Re sult Performing Organization Address [facility] Co de Phone Number [facility] [address] [place] [address] * (ABNORMAL) Hepatitis B Surface Antibody, Quantitative (08/01/2025 8:40 AM EST) Hepatitis B Surface Antibody, Quantitative 38.15(H) NonReacti ve: <8, Grayzone: 8 - <12, Reactive: >= 12 mIU/mL 08/01/2025 4:44 PM EST [facility] Comment: Reactive. Individual is considered immune to HBV infection. Blood Venous blood specimen / Unknown Venipuncture / Unknown 08/01/2025 8:40 AM EST 08/01/2025 1:53 PM EST us Leandra Kim ENDOSCOPY REGISTERED NURSE LAB BLOOD ORDERABLES Final Re sult [facility] [address] [place] [address] * Hepatitis B Core Antibody IgM (08/01/2025 8:40 AM EST) Hepatitis B Core Antibody IgM Negative Negative 08/01/2025 4:44 PM EST [facility] Blood Venous blood specimen / Unknown Venipuncture / Unknown 08/01/2025 8:40 AM EST 08/01/2025 1:53 PM EST Leandra Kim ENDOSCOPY REGISTERED NURSE LAB BLOOD ORDERABLES Final Re sult Performing Organization Address [facility] Co de Phone Number [facility] [address] [place] [address] * (ABNORMAL) Hepatitis A Antibody IgG (08/01/2025 8:40 AM EST) Pathologist [facility] Hepatitis A Antibody IgG Positive(A ) Negative 08/01/2025 4:44 PM EST [facility] Blood Venous blood specimen / Unknown Venipuncture / Unknown 08/01/2025 8:40 AM EST 08/01/2025 1:53 PM EST us Leandra Kim ENDOSCOPY REGISTERED NURSE LAB BLOOD ORDERABLES Final Re sult Performing Organization Address City/[facility]/ZIP Co de Phone Number [facility] [address] [place] [address] * Folate, Serum (08/01/2025 8:40 AM EST) Pathologist [facility] Folate, Serum 12.1 >4.6 ng/mL 08/01/2025 2:35 PM EST [facility] Blood Venous blood specimen / Unknown Venipuncture / Unknown 08/01/2025 8:40 AM EST 08/01/2025 1:53 PM EST us Leandra Kim ENDOSCOPY REGISTERED NURSE LAB BLOOD ORDERABLES Final Re sult [facility] [address] [place] [address] * Comprehensive Metabolic Panel, Plasma (08/01/2025 8:40 AM EST) Glucose, Plasma 85 74 - 99 mg/dL 08/01/2025 2:17 PM EST [facility] BUN, Plasma 12 7 - 21 mg/dL 08/01/2025 2:17 PM EST [facility] Creatinine, Plasma 0.86 0.70 - 1.20 mg/dL 08/01/2025 2:17 PM EST [facility] BUN/Creatinine Ratio 14 08/01/2025 2:17 PM EST [facility] Sodium, Plasma 140 136 - 145 mmol/L 08/01/2025 2:17 PM EST [facility] Potassium, Plasma 3.9 3.6 - 4.9 mmol/L 08/01/2025 2:17 PM EST [facility] Chloride, Plasma 104 97 - 107 mmol/L 08/01/2025 2:17 PM EST [facility] CO2, Plasma 25 22 - 29 mmol/L 08/01/2025 2:17 PM EST [facility] Anion Gap 11 6 - 16 mmol/L 08/01/2025 2:17 PM EST [facility] Total Calcium, Plasma 9.9 8.9 - 10.2 mg/dL 08/01/2025 2:17 PM EST [facility] Total Protein 7.6 6.3 - 7.9 g/dL 08/01/2025 2:17 PM EST [facility] Albumin, Plasma 4.5 3.5 - 5.2 g/dL 08/01/2025 2:17 PM EST [facility] AST, Plasma 24 10 - 50 U/L 08/01/2025 2:17 PM EST [facility] ALT, Plasma 18 10 - 50 U/L 08/01/2025 2:17 PM EST [facility] Alkaline Phosphatase, Plasma 97 40 - 115 U/L 08/01/2025 2:17 PM EST [facility] Total Bilirubin, Plasma 0.7 0.2 - 1.1 mg/dL 08/01/2025 2:17 PM EST [facility] eGFRcr 122.5 mL/min/1.7 3m*2 08/01/2025 2:17 PM EST [facility] Comment:Reported eGFRcr in m L/min/1.73m2 is based the CKD-EPI 2020 equation that does not use a race coefficient. Blood Venous blood specimen / Unknown Venipuncture / Unknown 08/01/2025 8:40 AM EST 08/01/2025 1:47 PM EST us Leandra Kim ENDOSCOPY REGISTERED NURSE LAB BLOOD ORDERABLES Final Re sult [facility] [address] [place] [address] * (ABNORMAL) CBC and Differential (08/01/2025 8:40 AM EST) WBC Count 6.82 3.70 - 10.30 10*3/uL LAB HEMATOLOGY METHOD 08/01/2025 1:58 PM EST [facility] RBC Count 4.86 4.60 - 6.10 10*6/uL LAB HEMATOLOGY METHOD 08/01/2025 1:58 PM EST [facility] HGB 13.5(L) 13.7 - 17.5 g/dL LAB HEMATOLOGY METHOD 08/01/2025 1:58 PM EST [facility] HCT 42.8 40.0 - 51.0 % LAB HEMATOLOGY METHOD 08/01/2025 1:58 PM EST [facility] Platelet Count 296 155 - 369 10*3/uL LAB HEMATOLOGY METHOD 08/01/2025 1:58 PM EST [facility] MCV 88 79 - 98 fL LAB HEMATOLOGY METHOD 08/01/2025 1:58 PM EST [facility] MCH 27.8 26.0 - 32.0 pg LAB HEMATOLOGY METHOD 08/01/2025 1:58 PM EST [facility] MCHC 31.5 30.7 - 35.5 g/dL LAB HEMATOLOGY METHOD 08/01/2025 1:58 PM EST [facility] RDW 12.6 11.5 - 14.5 % LAB HEMATOLOGY METHOD 08/01/2025 1:58 PM EST [facility] MPV 10.5 8.8 - 12.5 fL LAB HEMATOLOGY METHOD 08/01/2025 1:58 PM [facility] nRBC 0.0 <=0.0 per 100 WBCs LAB HEMATOLOGY METHOD 08/01/2025 1:58 PM [facility] Differential Type Automated LAB HEMATOLOGY METHOD 08/01/2025 1:58 PM [facility] Neutrophils % 58 % LAB HEMATOLOGY METHOD 08/01/2025 1:58 PM EST [facility] Lymphocytes % 34 % LAB HEMATOLOGY METHOD 08/01/2025 1:58 PM [facility] Monocytes % 6 % LAB HEMATOLOGY METHOD 08/01/2025 1:58 PM [facility] Eosinophils % 1 % LAB HEMATOLOGY METHOD 08/01/2025 1:58 PM [facility] Basophils % 1 % LAB HEMATOLOGY METHOD 08/01/2025 1:58 PM [facility] Immature Granulocytes % 0 % LAB HEMATOLOGY METHOD 08/01/2025 1:58 PM [facility] Neutrophils Absolute 3.90 1.60 - 6.10 10*3/uL LAB HEMATOLOGY METHOD 08/01/2025 1:58 PM [facility] Lymphocytes Absolute 2.34 1.20 - 3.90 10*3/uL LAB HEMATOLOGY METHOD 08/01/2025 1:58 PM [facility] Monocytes Absolute 0.42 0.30 - 0.90 10*3/uL LAB HEMATOLOGY METHOD 08/01/2025 1:58 PM [facility] Eosinophils Absolute 0.09 0.00 - 0.50 10*3/uL LAB HEMATOLOGY METHOD 08/01/2025 1:58 PM [facility] Basophils Absolute 0.05 0.00 - 0.10 10*3/uL LAB HEMATOLOGY METHOD 08/01/2025 1:58 PM [facility] Immature Granulocytes Absolute 0.02 0.00 - 0.06 10*3/uL LAB HEMATOLOGY METHOD 08/01/2025 1:58 PM [facility] Blood Venous blood specimen / Unknown Venipuncture / Unknown 08/01/2025 8:40 AM EST 08/01/2025 1:48 PM EST [facility] 08/01/2025 1:58 PM EST Therapeutic decision making should be based on absolute values, rather than percentages. Leandra Kim APRN LAB BLOOD ORDERABLES Final Re sult [facility] [address] [place] [address] documented in this encounter Visit Diagnoses Diagnosis [...] documented as of this encounter Care Teams Railroad Carman Relationship Specialty Start Date End Date Leandra Kim APRN [address] [place] [address] [address] [place] [address] PCP - General Family Medicine 07/20/25 documented as of this encounter
[2025-08-06 22:24] VITALS: BP 132/76; PULSE 71; RESP 17; TEMP 37.1; O2SAT 97; BMI 28.0
--- OUTSIDE RECORDS SUMMARY | 2025-08-06 22:27 | XMS_ITS | Encounter Summary ---
Author Organization [facility] Address [address] [place] [address] Care Team Providers Care Asphalt Screed Operator Name Role Phone Leandra Kim APRN Primary Care Provider Encounter Details Date Type Department Care Team (Late st Contact Info) Description 08/02/2025 Results Follow-Up [facility] [address] [place] [address] Leandra Kim APRN [address] [facility] [address] [place] [address] Social History Tobacco Use Types Packs/Day Years [...] time in the past 12 m [facility], were you homeless or living in a care home (including now)? No 04/27/2025 Safety and Environment [...] Recorded In the past 12 months has e [employer], gas, oil, or water company threatened to [...] as of this encounter Plan of Treatment Upcoming Encounters Date Type Department Care Team (Late st Contact Info) Description 11/20/2025 9:00 AM EST Office Visit [facility] [address] [place] [id number] Leandra Kim APRN [address] [place] [address] documented as of this encounter Visit Diagnoses Not on filedocumented in this encounter Additional Health Concerns Assessment Noted Time PHQ-9 Depression Total Score: 3 07/20/20 7:33 AM EDT A fall risk assessment has been complete d for the patient 06/14/2024 8:16 PM EDT A Body Mass Index follow-up plan has been documented for the patient 08/01/2025 9:35 AM EST documented as of this encounter Care Teams Asphalt Screed Operator Relationship Specialty Start Date End Date Leandra Kim APRN [address] [facility] [address] [place] [address] PCP - General Family Medicine 07/20/25 documented as of this encounter
--- OUTSIDE RECORDS SUMMARY | 2025-08-06 22:27 | XMS_ITS | Clinical Summary ---
Author Organization [facility] Address [address] [place] [address] Phone Care Team Providers Care Crew Leader/Control Room Operator Name Role Phone Sheryl Castaneda APRN Primary Care Provider [phone] Allergies Active Allergy Reactions Criticality Noted Date Comments Benadryl Allergy Decongestant Other (See Comments) High 11/13/2015 Excessive hyperactivity Codeine Itching High 04/22/2011 Prochlorperazine Edisylate Other (See Comments) High 10/21/2011 Gets severely agitated Penicillins Itching,Nausea And Vomiting High 04/22/2011 Oxycodone-Acetaminophen Nausea And Vomiting 08/03/2019 Sulfa (Sulfonamide Antibiotics) Hives,Shortness Of Breath,Swelling High 04/22/2011 Sertraline Other (See Comments) High 11/13/2015 Anger and auditory hallucinations Medications testosterone 20.25 mg/1.25 gram (1.62 %) TD Gel in Metered-dose Pump Apply 40.5 mg topically daily. 0 Active vilazodone (VIIBRYD) 20 mg Oral TabletIndicatio ns:Current moderate episode of major depressive disorder without prior episode (HCC) Take 1 Tab by mouth daily (with breakfast). 90 Tab 3 1 Active Additional Information Patient not taking.Reported on 06/15/2021 diclofenac (VOLTAREN) 1 % Top GelIndications: Tendonitis Apply 2 g topically 4 times daily. 100 g 1 Active Additional Information Patient not taking.Reported on 06/15/2021 diclofenac (VOLTAREN) 75 mg Oral Tablet, Delayed Release (E.C.)Indicatio ns:Tendonitis Take 1 Tab by mouth 2 times daily as needed for Pain. 30 Tab 1 Active Additional Information Patient not taking.Reported on 06/15/2021 methocarbamoL (ROBAXIN) 750 mg Oral TabletIndicatio ns:Tendonitis Take 1 Tab by mouth 3 times daily as needed for Pain. 30 Tab 1 Active Additional Information Patient not taking.Reported on 06/15/2021 TESTOSTERONE PROPIONATE IM Inject 0.45 mL into the muscle once a week. Active Active Problems Patient Care Coordination No te Formatting of this note migh t be different from the original. Utilization audit completed by Esther Oswald RN on 04/30/2022. Problem Noted Date Diagnosed Date Acute superficial gastritis without hemorrhage 0 05/24/2018 Overview (05/24/2018): On EGD Esophagitis 05/24/2018 Overview (05/24/2018): On EGD Abdominal pain, RUQ (right upper quadrant) 04/01 History of asthma 2017 History of vitamin D deficiency 2017 Gender dysphoria in adolescent and adult 015 Overview (09/24/2015): Followed at [facility] Episodic mood disorder 01/04/2015 Overview (10/28/2016): With cutting; seen at [facility] Glen[facility] labrum tear 05/30/2014 Overview (2017): Bilateral. SLAP and rotator. No surgery. Did physical therapy Resolved Problems Problem Noted Date Diagnosed Date Resolved Date Family history of cardiovascular disease 2017 03/02/2018 Overview (2017): Mother had stroke at age 37. No known clotting disorder. Strong family history of high cholesterol Family history of diabetes mellitus in mother 08/28/20 17 03/02/2018 Family history of alcoholism 2017 03/02/2018 Closed fracture of left proximal humerus 04/30/2015 11/04/2016 Overview (04/30/2015): Seen by ortho [facility] 04/21/15 Other shoulder lesions, unspecified shoulder 4 11/04/2016 BMI (body mass index), pedia tric, greater than or equal to 95% for age 0805/13/2013 11/04/2016 History of chicken pox 03/02 Immunizations Immunization Administration Dates Next Due DTaP 12/21/2002, 0,03/22/1999,12/27,1998 HPV Quadrivalent 04/02/2015,05/13/2013, 3 Hepatitis A, Ped/Adol, 2 Dose 07/22/2016, 015 Hepatitis B, Unspecified Formulation 05/30/1999, 1998,1998 HiB, Unspecified Formulation 12/05/1999, 03/22/1999,1998,11/01 IPV 12/21/2002, 9,1998,11/01 Influenza Vaccine Quadrivalent 07/22/2016 Influenza Vaccine Quadrivalent PF 10/10/2013 Influenza Vaccine, Unspecifi ed Formulation 08/29/2016,06/18/2012 MMR 12/21/2002,12/05/1999 Meningococcal Conjugate 11/04/2016,05/13/2011 Moderna SARS-CoV-2 Vaccine 1 2+ Yrs (Light blue border) 04/17/2021 Tdap 02/08/2010 Surgical History Surgery Date Site/Laterality Comments TONSILLECTOMY TYMPANOSTOMY TUBE PLACEMENT WISDOM TOOTH EXTRACTION CHOLECYSTECTOMY, LAPAROSCOPIC 09/11/2017 N/A LAPAROSCOPIC CHOLECYSTECTOMY ; Surgeon: Ozzy Isidro MD; Location: [facility]; Service: General KNEE ARTHROSCOPY 08/09/2019 Left LEFT KNEE PATELLA ARTHROSCOPY CHONDRALPLASTY WITH DRILLING; Surgeon: Jeffrey Contreras MD; [facility]; Service: Orthopedics UPPER GASTROINTESTINAL ENDOSCOPY 04/23/2018 w/t [facility] Medical History Medical History Date Comments Asthma BMI (body mass index), pedia tric, greater than or equal to 95% for age 805/13/2013 Anxiety Depression Transgender testosterone inj ections weekly Fracture from football, s kateboarding. 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 work Family History Medical History Relation Name Comments ADHD Brother 1 Cruzito Down Syndrome Brother 1 Crzuito Heart Disease Brother 1 Cruzito congential - h ad surgery Other Brother 1 Cruzito Autism ADHD Brother 2 Alcohol Abuse Father Back Problems Father Breast Cancer Maternal Aunt great aunt Blindness Maternal Grandfather from cidnet Diabetes Maternal Grandfather High Blood Pressure Maternal Grandfather High Cholesterol Maternal Grandfather High Blood Pressure Maternal Grandmother High Cholesterol Maternal Grandmother Irritable Bowel Syndrome Maternal Grandmother Other Maternal Grandmother neuropa thy Asthma Mother Back Problems Mother DDD, spinal st enosis Diabetes Mother High Cholesterol Mother Stroke Mother February 2017 - age 37 Alcohol Abuse Paternal Grandfather Other Sister 1 Alysia [employer] foot and k [place] reflux Heart Disease Sister 2 Kerri congential - h ad surgery Anesth Problems Neg Hx Relation Name Status Comments Brother 1 Cruzito Alive Brother 2 Alive Father Alive Maternal Aunt great aunt Alive Maternal Grandfather Maternal Grandmother Mother Alive Paternal Grandfather Sister 1 Alysia Alive Sister 2 Kerri Alive Social History Tobacco Use Types Packs/Day Years Used Date Smoking Tobacco: Former Cigarettes 0.5 2.9 0 09/28/2012 - 08/14/2015 Smokeless Tobacco: Current Chew Tobacco Cessation:Ready to Q uit: Not Asked; Counseling Given: Not Answered Alcohol Use Standard Drinks/Week Comments Yes 0 (1 standard drink = 0.6 oz pur e alcohol) rarely PHQ-2 Answer Date Recorded PHQ-2 Score 0 02/15/2019 Sexually Active Control Partners Comments Never Female Comments No Sex and Gender Information Value Date Recorded Sex Assigned at Female 06/28/2023 8:26 PM EDT Legal Sex Male 2:06 PM EST Gender Identity Male 06/28/2023 8:26 PM EDT Sexual Orientation Straight 06/28/2023 8: 28 PM EDT History Length Weight Head Circum Date/Time Gestation Age D/C Weight APGARs Delivery Method Feeding Method 7 lb 14 oz (3.572 kg) 1998 42 wks Vaginal, Spontaneous Labor Duration Days In Hospital Hospital Name Hospital Location [place], [place] Comments Mom had pre-eclampsia. Obstetrics History Para Term AB IAB SAB Ectopic Multiple Livin g Live Births 0 0 0 0 0 0 0 0 0 0 0 Last Filed Vital Signs Vital Sign Reading Time Taken Comments Blood Pressure 126/78 01/27/2023 9:34 AM EDT Pulse 71 01/27/2023 9:34 AM EDT Temperature 37.2 C (98.9 F) 01/27/2023 9:34 AM EDT Respiratory Rate 16 01/27/2023 9:34 AM EDT Oxygen Saturation 99% 01/27/2023 9:34 AM EDT Inhaled Oxygen Concentration - - Weight 82.1 kg (181 lb) 01/27/2023 9:34 AM EDT Height 170.2 cm (5' 7 ) 01/27/2023 9:34 AM EDT Body Mass Index 28.35 01/27/2023 9:34 AM EDT Plan of Treatment Health Maintenance Due Date Last Done Comments Annual Wellness Exam 2001 COVID-19 Vaccine ( season) 2025 04/17/2021 Influenza Vaccine (#1) 2025 6, 08/29/2016, 07/22/2016, Additional history exists DTaP/TDaP/Td (8 - Td or Tdap) 02/27/2030 02/28/2020, 02/08/2010, 12/21/2002, Additional history exists Hepatitis B Vaccine Completed 05/30/1999, 1998, 1998 HPV Completed 04/02/2015, 04/28, 04/12/2013 Meningococcal B Vaccine Aged Out No l onger eligible based on patient's age to complete this topic Pneumococcal Vaccine 0-49 Aged Out No longer eligible based on patient's age to complete this topic Goals Goal Patient Goal Type Associated Problems Recent Progress Patient-Stated? Author Maintain a healthy diet, exercise regularly and maintain an ideal body weight General No Leora Dos Santos LPN Stay Tobacco Free Lifestyle No Leora Dos Santos LPN Insurance ANTHEM PPO ANTHEM PPO [employer] COMP on file [facility] PPO Care Teams Crew Leader/Control Room Operator Relationship Specialty Start Date End Date Sheryl Castaneda APRN [address] [place] [id number] PCP - General Nurse Practitioner 03/18/24
--- OUTSIDE RECORDS SUMMARY | 2025-08-06 22:27 | XMS_ITS | Data Portability ---
Author Organization OR - [facility] [place] [facility] [place] [facility] Address [address] [place] [id number] Care Team Providers Care Zinc Etcher Name Role Phone GLORIA MAI Primary Care Provider Assessment No assessment recorded. Plan of Treatment Reminders Order Date Submit Date Provider Last Modified By Organization Details Last Modified Time Details Appointments OV EST 15 2025 09:00A M Tonny Ruby MD Not available Not available Not available Lab None recorded. Referral None recorded. Procedures holter monitor placement (PROC) 2024 025 JAYSON Not available 05/11/2025 08:56:53 Surgeries None recorded. Imaging US, echocardi ogram, transthor acic, complete, w/ color flow 2024 025 [facility], [address], [place], [address], 05/16/2025 08:55:18 Medication Orders None recorded. Patient TargetsNo targets recorded. Patient InstructionsNo instructions recorded. Reason for Referral None Reported. Results Created Date Observation Date Name Description Value Unit Range Abnormal Flag Note LastModifiedBy Organization Detail LastModifiedTime 05/11/2005/02/[address] or place ment (PROC ) No observ ation record ed. lsidwell Not Available 2024 08:56:53 05/15/2005/15/2025 US, echoc ardio gram, trans thora cic, compl ete, w/ color flow [facility] [address] [place] [address] Phone: Fax: Name: SEEMA SANCHEZ Exam Date: 025 : 998 Age 24 years Gender : M Access ion: [id number] Physic immanuel: LEONARDO DOMINGUEZ Facili ty: [facility] Fac[place] HSV: Outpat ient Exam: ECHO W SPEC COLOR FLOW Reason for Study: Palpit ations SUMMAR Y Normal LV size with normal functi on. The ejecti on fracti on is 60-65% . Normal diasto lic functi on. No hemody namica lly signif icant valvul ar heart diseas e. INTERP RETATI ON DETAIL Good qualit y study. Left ventri chintan: The left ventri chintan is normal in size with normal systol ic functi on. The ejecti on fracti on is 60-65% . There is normal LV wall thickn ess. The left ventri cular wall motion is normal . Left atrium : The left atrium is normal . LA volume : 43.0mL , LA volume index: 22.1mL /mA . Right ventri chintan: The right ventri chintan is normal in size with normal functi on. Right atrium : The right atrium is normal . Mitral valve: The mitral valve is normal . There is no mitral stenos is. There is no mitral regurg itatio n. Aortic valve: The aortic valve is normal and trilea flet. There is no aortic stenos is. There is no aortic regurg itatio n. Tricus pid valve: The tricus pid valve is normal . There is no tricus pid regurg itatio n, so PA pressu re cannot be estima yuridia. Pulmon ic valve: The pulmon ic valve is normal . Perica rdium: The perica rdium is normal . Pulmon navi artery : The pulmon navi artery is normal . Intera trial septum : The intera trial septum is normal . Aorta: The aorta is normal . The aortic root is normal . Aortic dimens ions - Ao M-mode = 3.10cm , Ascend ing=2. 80cm. Vena Cava: The inferi or vena cava is normal . MEASUR EMENTS Left Ventri chintan IVSd: 0.82cm (0.6-1 .1cm) PWd: 0.87cm (0.6-1 .1cm) Mass Kathy: 151g LVMI: 77g/mA (>50-9 5g/m) LVIDd: 5.11cm (3.7-5 .6 cm) LVIDdI : 2.62cm /m2 LVIDs: 2.68cm (1.8-4 .2 cm) LVIDsI : 1.37cm /m2 RWT: 0.34 (<0.42 ) E to A: 1.98 (0.6-2 ) E-e prime med: 6.33 E-e prime lat: 5.28 Decel: 322.00 ms (168-2 32ms) Right Ventri chintan Mid RV Rosita: 2.4cm (2.7-3 .3cm) Max Valve Veloci ties LVOT: 120.00 cm/sec Atria LA AP: 3.4cm LA vol: 43.0mL Legall y authen ticate d by MICHELLE Warren 05-15 14:42: 52 IAN: 22.1mL /mA (16-28 ml/m^2 ) Electr onical ly signed by Dr. Leonardo uriarte on 2024 at 2:42 PM Dictat ed By: LEONARDO DOMINGUEZ Transc ribed By: Transc ribed On: 025 2:42 PM Electr onical ly signed by: LEONARDO DOMINGUEZ 025 Thank you for referr SEEMA Swartz to [facility]. Legall y authen ticate d by MICHELLE Warren 05-15 14:42: 52 CC'ed Logic: Orderi ng Provid er: MICHELLE Warren Attend ing Provid er: MICHELLE Warren Referr ing Provid er: MICHELLE Warren Admitt ing Provid er: MICHELLE Warren [facility] [address], [place], [address], 05/16/2025 08:55:18 05/23/20 25 05/15/2025 US, echoc ardio gram, trans thora cic, compl ete, w/ color flow [facility] [address] [place] [address] Phone: Fax: Name: SEEMA SANCHEZ Exam Date: 025 : 998 Age 24 years Gender : M Access ion: [id number] Physic immanuel: LEONARDO DOMINGUEZ Facili ty: [facility] Facili ty HSV: Outpat ient Exam: ECHO W SPEC COLOR FLOW Reason for Study: Palpit ations SUMMAR Y Normal LV size with normal functi on. The ejecti on fracti on is 60-65% . Normal diasto lic functi on. No hemody namica lly signif icant valvul ar heart diseas e. INTERP RETATI ON DETAIL Good qualit y study. Left ventri chintan: The left ventri chintan is normal in size with normal systol ic functi on. The ejecti on fracti on is 60-65% . There is normal LV wall thickn ess. The left ventri cular wall motion is normal . Left atrium : The left atrium is normal . LA volume : 43.0mL , LA volume index: 22.1mL /mA . Right ventri chintan: The right ventri chintan is normal in size with normal functi on. Right atrium : The right atrium is normal . Mitral valve: The mitral valve is normal . There is no mitral stenos is. There is no mitral regurg itatio n. Aortic valve: The aortic valve is normal and trilea flet. There is no aortic stenos is. There is no aortic regurg itatio n. Tricus pid valve: The tricus pid valve is normal . There is no tricus pid regurg itatio n, so PA pressu re cannot be estima yuridia. Pulmon ic valve: The pulmon ic valve is normal . Perica rdium: The perica rdium is normal . Pulmon navi artery : The pulmon navi artery is normal . Intera trial septum : The intera trial septum is normal . Aorta: The aorta is normal . The aortic root is normal . Aortic dimens ions - Ao M-mode = 3.10cm , Ascend ing=2. 80cm. Vena Cava: The inferi or vena cava is normal . MEASUR EMENTS Left Ventri chintan IVSd: 0.82cm (0.6-1 .1cm) PWd: 0.87cm (0.6-1 .1cm) Mass Kathy: 151g LVMI: 77g/mA (>50-9 5g/m) LVIDd: 5.11cm (3.7-5 .6 cm) LVIDdI : 2.62cm /m2 LVIDs: 2.68cm (1.8-4 .2 cm) LVIDsI : 1.37cm /m2 RWT: 0.34 (<0.42 ) E to A: 1.98 (0.6-2 ) E-e prime med: 6.33 E-e prime lat: 5.28 Decel: 322.00 ms (168-2 32ms) Right Ventri chintan Mid RV Rosita: 2.4cm (2.7-3 .3cm) Max Valve Veloci ties LVOT: 120.00 cm/sec Atria LA AP: 3.4cm LA vol: 43.0mL Legall y authen ticate d by MICHELLE Warren 05-15 14:42: 52 IAN: 22.1mL /mA (16-28 ml/m^2 ) Electr onical ly signed by Dr. Leonardo uriarte on 2024 at 2:42 PM Dictat ed By: LEONARDO DOMINGUEZ Transc ribed By: Transc ribed On: 025 2:42 PM Electr onical ly signed by: LEONARDO DOMINGUEZ 025 Addend um 1 Reason for Study: Palpit ations SUMMAR Y Normal LV size with normal functi on. The ejecti on fracti on is 60-65% . Normal diasto lic functi on. No hemody namica lly signif icant valvul ar heart diseas e. INTERP RETATI ON DETAIL Good qualit y study. Left ventri chintan: The left ventri chintan is normal in size with normal systol ic functi on. The ejecti on fracti on is 60-65% . There is normal LV wall thickn ess. The left ventri cular wall motion is normal . Left atrium : The left atrium is normal . LA volume : 43.0mL , LA volume index: 22.1mL /mA . Right ventri chintan: The right ventri chintan is normal in size with normal functi on. Right atrium : The right atrium is normal . Mitral valve: The mitral valve is normal . There is no mitral stenos is. There is no mitral regurg itatio n. Aortic valve: The aortic valve is normal and trilea flet. There is no aortic stenos is. There is no aortic regurg itatio n. Tricus pid valve: The tricus pid valve is normal . There is no tricus pid regurg itatio n, so PA pressu re cannot be estima yuridia. Pulmon ic valve: The pulmon ic valve is normal . Perica rdium: The perica rdium is normal . Pulmon navi artery : The pulmon navi artery is normal . Intera trial septum : The intera trial septum is normal . Aorta: The aorta is normal . The aortic root is normal . Aortic dimens ions - Ao M-mode = 3.10cm , Ascend ing=2. 80cm. Vena Cava: The inferi or vena cava is normal . MEASUR EMENTS Left Ventri chintan IVSd: 0.82cm (0.6-1 .1cm) PWd: 0.87cm (0.6-1 .1cm) Mass Kathy: 151g LVMI: 77g/mA (>50-9 5g/m) LVIDd: 5.11cm (3.7-5 .6 cm) LVIDdI : 2.62cm /m2 LVIDs: 2.68cm (1.8-4 .2 cm) LVIDsI : 1.37cm /m2 RWT: 0.34 (<0.42 ) E to A: 1.98 (0.6-2 ) E-e prime med: 6.33 E-e prime lat: 5.28 Decel: 322.00 ms (168-2 32ms) Right Ventri chintan Mid RV Rosita: 2.4cm (2.7-3 .3cm) Max Valve Veloci ties LVOT: 120.00 cm/sec Atria Legall y authen ticate d by MICHELLE Warren 05-15 14:42: 52 LA AP: 3.4cm LA vol: 43.0mL IAN: 22.1mL /mA (16-28 ml/m^2 ) Electr onical ly signed by Dr. Leonardo uriarte on 2024 at 2:42 PM Dictat ed By: LEONARDO DOMINGUEZ Dictat ed Date: 025 2:42:5 2 PM Electr onical ly signed by: LEONARDO DOMINGUEZ 025 Thank you for referr ing SEEMA SANCHEZ to [facility]. Legall y xiomara lyle d by MICHELLE Warren 05-15 14:42: 52 CC'ed Logic: Orderi ng Provid er: MICHELLE Warren Attend ing Provid er: MICHELLE Warren Referr ing Provid er: MICHELLE Warren Admitt ing Provid er: MICHELLE Warren [facility] [place] [id number], [place], [address], 05/23/2025 14:00:53 Result Notes None recorded. Medical Equipment None Reported. Allergies Allergen ID Allergen Name Allergen Category Reaction Reaction Severity Criticality Documentation Date Start Date Code Code System Note Provider Name and Address Organization Details Recorded Time 039289 Substance with sulfonami de structure and antibacte rial mechanism of action (substanc e) medicatio n Not available Not available Not available 05/02/2025 33640 8003 SNOMED LINDA Doe - [place] [facility] [place] 10:37:25 181558 codeine medicatio n Not available Not available Not available 05/02/2025 2670 RxNorm LINDA Doe [facility] & [place] 10:37:32 535903 Compazine medicatio n Not available Not available Not available 05/02/202560759 6 RxNorm LINDA Doe [facility] & [place] 10:37:43 636772 Benadryl medicatio n Not available Not available Not available 05/02/202567948 7 RxNorm LINDA Doe [facility] & [place] 10:37:50 935514 Zoloft medicatio n Not available Not available Not available 05/02/2025 13184 RxNorm LINDA Doe [facility] & [place] 10:37:58 Medications Not known to be on any medication Vitals Date Recorded Body weight Body mass index (BMI) Body height Oxygen saturation Oxygen saturation in Arterial blood by Pulse oximetry Heart rate Systolic And Diastolic Provider Name and Address Organization Details Last Updated DateTime 5 04707 g 28.8 kg/m2 170.18 cm 98 % 98 % 54 /min 144/89 mm[Hg] Amirah Guillen [facility] & [place] 10:39:39 Date Recorded Body height Body mass index (BMI) Body weight Oxygen saturation Oxygen saturation in Arterial blood by Pulse oximetry Heart rate Systolic And Diastolic Provider Name and Address Organization Details Last Updated DateTime 5 170.18 cm 29.3 kg/m2 59876.7 7 g 99 % 99 % 71 /min 120/83 mm[Hg] Amirah PEREZ [facility] & [place] 5 08:59:10 Social History None recorded. Functional Status None recorded. Mental Status None recorded. Family History Nothing Reported. Medical History No medical history recorded. Past Encounters Encounter ID Performer Location Encounter Start Date Encounter Closed Date Diagnosis/Indication Diagnosis SNOMED-CT Code Diagnosis ICD10 Code Diagnosis IMO Codes Diagnosis Note [id number] Sumanth Ruby MD [facility] [address] [place] [address] 05/02/2025 10:30:25 05/02/2025 11:13:51 Precordial pain 67463328 R07.2 99611 Recurrent spells of chest discomfort . non exertional . EKG NSR. patient is low risk for CAD. follow up echocardio gram. Palpitations 01688584 R0 0.2 28209 recurrent episodes of chest discomfort with abnormal heart beat on the smart watch. follow up holter monitor. follow up TSH and MG level. [id number] Sumanth Ruby MD [facility] [address] [place] [address] 05/16/2025 08:52:55 05/16/2025 09:11:09 Precordial pain 16750900 R07.2 71171 History of chest discomfort . non exertional . EKG NSR. patient is low risk for CAD. echocardio gram showed normal systolic function no hemodynami elfego significan t valvular heart disease. If there is recurrence of chest pain we will proceed with regular exercise stress test. Palpitations 64009573 R0 0.2 29668 History of palpitatio n. Holter monitor showed sinus rhythm no significan t arrhythmia . Results were discussed with the patient. No recurrence . Health Concerns Section Related Observation LastModified by Organization Detai ls LastModified Time None Recorded Concern Status LastModified by Organization Details LastModified Time None Recorded Advance Directives Directive None Recorded Payers Insurance Date Sequence Insurance Name Policy Number Policy Huntley Covered Member ID Huntley Member ID Guarantor Name 05/19/2025 1 [place] [id number] Tyler Sanchez [id number] Tyler Sanchez Notes Date Note Type Note Provider Name and Address Organization Details Recorded Time 05/02/2025 text/html 24 year old transgender female on testosterone treatment. history of bilateral mastectomy. history of chewing tobacco. patient presented to the ER 04/28/25 with complaints of chest discomfort and abnormal heart beat recorded on his smart watch.Patient has been physically active, the chest discomfort feels like soreness in the chest, not exertional, associated with palpitations, and some dizziness, falling down or passing out. no nausea, vomiting or excessive sweating. no orthopnea, PND or leg swelling. no cough sputum or hemoptysis. no bleeding. no known family history of heart disease at early age or early in the family.I reviewed and discussed with the patient the results of blood work that was done during the ER visit including CMP, CBC and trop. EK04/28/25 Normal sinus rhythm. Sumanth Ruby MD [address], [place], [address], [facility] & [place] 05/02/2025 16:19:25 05/16/2025 text/html 24 year old transgender female on testosterone treatment. history of bilateral mastectomy. history of chewing tobacco. patient presented to the ER 04/28/25 with complaints of chest discomfort and abnormal heart beat recorded on his smart watch. Patient has been physically active, the chest discomfort feels like soreness in the chest, not exertional, associated with palpitations, and some dizziness, falling down or passing out. no nausea, vomiting or excessive sweating. no orthopnea, PND or leg swelling. no cough sputum or hemoptysis. no bleeding. no known family history of heart disease at early age or early in the family.I reviewed and discussed with the patient the results of blood work that was done during the ER visit including CMP, CBC and trop. Patient came today to follow up on results of the echocardiogram and Holter monitor. Results were discussed with the patient. There was no significant abnormality on the echocardiogram. And Holter monitor showed primary rhythm sinus rhythm no significant arrhythmia results were discussed with the patient counseling was done. Echocardiogram: 05/15/25Normal LV size with normal function. The ejection fraction is60-65%. Normal diastolic function.No hemodynamically significant valvular heart disease. Holter monitor: 05/02/2025 - 05/08/2025No significant arrhythmia. Primary rhythm sinus rhythm. EK04/28/25 Normal sinus rhythm. Sumanth Ruby MD [address], [place], [address], [facility] & [place] 05/22/2025 12:56:11
--- OUTSIDE RECORDS SUMMARY | 2025-08-06 22:27 | XMS_ITS | Encounter Summary ---
Author Organization [facility] Address [address] [place] [address] Care Team Providers Care Metal Framer Name Role Phone Leandra Kim APRN Primary Care Provider [phone] Encounter Details Date Type Department Care Team (Latest Contact Info) Description 07/20/2025 Travel Social History Tobacco Use Types Packs/Day Years [...] any time in the past 12 m [facility], were you homeless or living in a prison (including now)? No 04/27/2025 Safety and Environment [...] the past 12 months has th e electric, gas, oil, or water company threatened to [...] as of this encounter Functional Status * Over the past 2 weeks, how often have you been bothered by any of the following problems? Question Answer Date of Assessment Author Little interest or pleasure in doing things Not at all 07/20/2025 7:33 AM EDT Johnathan Taveras Feeling down, depressed, or hopeless Not at all 07/20/2025 7:33 AM EDJohnathan Ott Patient Health Questionnaire -2 Score 0 07/20/2025 [...] Wish to be (Past 1 Month) No 025 7:36 AM Johnathan Lee 2. Non-Specific Active Suici concetta Thoughts (Past 1 Month) No 07/20/2025 7:36 AM Johnathan Lee 6. Suicidal Behavior (Lifetime) No 7:36 AM Johnathan Lee documented as of this encounter Plan of Treatment Upcoming Encounters Date Type Department Care Team (Late st Contact Info) Description 11/20/2025 9:00 AM EST Office Visit [facility] [address] [place] [id number] Leandra Kim APRN [address] [facility] [address] [place] [address] documented as of this encounter [...] documented as of this encounter Care Teams Metal Framer Relationship Specialty Start Date End Date Leandra Kim APRN [address] [facility] [address] [place] [address] PCP - General Family Medicine 07/20/25 documented as of this encounter
--- OUTSIDE RECORDS SUMMARY | 2025-08-06 22:27 | XMS_ITS | Clinical Summary ---
Author Organization [facility] Address [address] [place] [address] Care Team Providers Care Glaze Mixer Name Role Phone Provider, No Known Primary Care Provider Unavail able Social History Tobacco Use Types Packs/Day Years [...] on file Sexual Orientation Not on file Plan of Treatment Health Maintenance Due Date Last Done Comments ANNUAL PHYSICAL 1998 HEPATITIS C SCREENING 1998 INFLUENZA VACCINE 04/28/2025 10/21/2023, , 07/22/2016, Additional history exists TDAP/TD VACCINES (3 - Td or Tdap) 02/27/2030 02/28/2020, 02/08/2010 Pneumococcal Vaccine 0-49 Aged Out No longer eligible based on patient's age to complete this topic Insurance [id number] [place] [id number] [facility] [employer] Care Teams Glaze Mixer Relationship Specialty Start Date End Date Provider, [place] [address] PCP - General 01/25/24
--- OUTSIDE RECORDS SUMMARY | 2025-08-06 22:27 | XMS_ITS | Encounter Summary ---
Author Organization [facility] [place] [address] Care Team Providers Care Test Puller Name Role Phone Emily Cain MD Primary Care Provi Jolynn Mix DO Primary Care Provider [phone] Sheryl Castaneda APRN Primary Care Provider [phone] Encounter Details Date Type Department Care Team (Latest Contact Info) Description 01/25/2021 Lab Requisition [facility] [place] [address] Hossein Elizondo MD [address] [id number] Periumbilical pain; Abnormal weight loss; Anemia, unspecified; Change in bowel habit Social History Tobacco Use Types Packs/Day Years Used Date Smoking Tobacco: Former Cigarettes 0.5 1 1 10/14/2013 - 08/14/2015 Smokeless Tobacco: Current Chew Alcohol Use Standard Drinks/Week Comments Yes 0 [...] Orientation Straight 06/28/2023 8: 28 PM EDT COVID-19 Exposure Response Date Recorded In the last month, have you been in contact with someone who was confirmed or suspected to have Coronavirus / COVID-19? No / Unsure 01/21/2021 7:24 AM EDT documented as of this encounter Functional Status * Is the person deaf or does he/she have serious difficulty hearing? Answer Date of Assessment Author No 09/30/2019 3:00 PM Cherry Rojas RMA * Is the person blind or does he/she have serious difficulty seeing even when wearing glasses? Answer Date of Assessment Author No 09/30/2019 3:00 PM Cherry Rojas RMA * Does this person have serious difficulty walking or climbing stairs? Answer Date of Assessment Author No 09/30/2019 3:00 PM Cherry Rojas RMA * Does this person have difficulty dressing or bathing? Answer Date of Assessment Author No 09/30/2019 3:00 PM Cherry Rojas RMA * Because of a physical, mental or emotional condition, does this person have difficulty doing errands alone such as visiting a doctor's office or shopping? Answer Date of Assessment Author No 09/30/2019 3:00 PM Cherry Rojas RMA documented as of this encounter Mental Status * Because of a physical, mental or emotional condition, does this person have serious difficulty concentrating, remembering or making decisions? Answer Entry Date Author No 09/30/2019 3:00 PM Cherry Rojas RMA documented in this encounter Plan of Treatment Not on file documented as of this encounter Goals Goal Patient Goal Type Associated Problems Recent Progress Patient-Stated? Author Maintain a healthy diet, exercise regularly and maintain an ideal body weight General No Leora Dos Santos LPN Stay Tobacco Free Lifestyle No Leora Dos Santos LPN documented as of this encounter Procedures Procedure Name Priority Date/Time Associated Diagnosis Comments PATHOLOGY TISSUE REQUEST Routine 01/25/2021 1:12 PM EDT Periumbilical pain Abnormal weight loss Anemia, unspecified Change in bowel habit documented in this encounter Results * PATHOLOGY TISSUE REQUEST (01/25/2021 1:12 PM EDT) CASE REPORT Surgical Pathology Case: [id number] Authorizing Provider: Hossein Elizondo MD Collected: 01/25/2021 1312 Ordering Location: [facility] Received: 01/28/2021 0724 Pathologist: Bernardino Shelton MD Specimens: A) - Small Intestine, Duodenum B) - Gastric 01/29/2021 8:36 AM EDT [facility] CL[facility]ICAL H[facility] Abdominal pain - periumbilical; weight loss; anemia, normocytic; change in bowel habits. 01/29/2021 8:36 AM EDT [facility] [employer] [facility] FINAL DIAGNOSIS A) Duodenum, biopsy: - Duodenal-type mucosa with normal villous architecture and focal mild increased intraepithelial lymphocytes. See comment. B) Stomach, biopsy: - Antral-type mucosa with mild reactive changes. - Fundic-type mucosa with no significant pathologic changes. - Negative intestinal metaplasia or dysplasia. 01/29/2021 8:36 AM EDT [facility] at 0836 EDT COMMENT The histologic findings are not specific, and differential includes drugs, reactive process, or early celiac disease. Clinical correlation is necessary. 01/29/2021 8:36 AM EDT [facility] Microscopic examination is performed and the findings corroborate the diagnosis. 01/29/2021 8:36 AM EDT [facility] [employer] [facility] EMBEDDED IMAGES 01/29/2021 8:36 AM EDT [facility] GROSS DESCRIPTION Part A) Received in formalin labeled with the patient's name and b iopsy duodenal are five fragments of ruiz tissue ranging from 0.2 to 0.4 cm in greatest dimension. Entirely submitted in one cassette. /TE Part B) Received in formalin labeled with the patient's name and b iopsy - gastric are six fragments of ruiz tissue ranging from 0.2 to 0.6 cm in greatest dimension. Entirely submitted in one cassette. /TE 01/29/2021 8:36 AM EDT [facility] Tissue DUODENAL STRUCTURE / Unknown 01/25/2021 1:12 PM EDT 01/28/2021 7:24 AM EDT Tissue specimen (specimen) STOMACH STRUCTURE / Unknown 01/25/2021 1:12 PM EDT 01/28/2021 7:24 AM EDT Hossein Elizondo MD PATHOLOGY ORDERABLES Final Result [facility] [address] [place], [place] [id number] documented in this encounter Visit Diagnoses Diagnosis Periumbilical pain Abdominal pain, periumbilic Abnormal weight loss Loss of weight Anemia, unspecified Change in bowel habit documented in this encounter Additional Health Concerns Infection Onset Date Last Indicated Resolved Time R/O COVID-19 06/13/2021 06/13/2021 07/03/2021 10:1 3 PM EDT documented as of this encounter Care Teams Test Puller Relationship Specialty Start Date End Date Emily Cain MD PCP - General Family Medicine 08/14/17 01/08/24 Jolynn Pop [place] [employer] [address] PCP - General Family Medicine 01/09/24 03/17/24 Sheryl Castaneda APRN [employer] [facility] [place] [address] PCP - General Nurse Practitioner 03/18/24 documented as of this encounter
--- OUTSIDE RECORDS SUMMARY | 2025-08-06 22:27 | XMS_ITS | Encounter Summary ---
Author Organization [facility] Address [address] [place] [address] Care Team Providers Care Transformer Assembler Name Role Phone Leandra Kim APRN Primary Care Provider [phone] Encounter Details Date Type Department Care Team (Latest Contact Info) Description 08/01/2025 Travel Social History Tobacco Use Types Packs/Day [...] any time in the past 12 m [facility], were you homeless or living in a senior living (including now)? No 04/27/2025 Safety and Environment [...] Description 11/20/2025 9:00 AM EST Office Visit [facility] [address] [place] [address] Leandra Kim APRN [address] [facility] [address] [place] [address] documented as of this encounter Visit Diagnoses [...] documented as of this encounter Care Teams Transformer Assembler Relationship Specialty Start Date End Date Leandra Kim APRN [address] [place] [address] [address] [place] [id number] PCP - General Family Medicine 07/20/25 documented as of this encounter
--- OUTSIDE RECORDS SUMMARY | 2025-08-06 22:27 | XMS_ITS | Encounter Summary ---
Author Organization [facility] Address [address] [place] [address] Care Team Providers Care Ammunition Specialist Name Role Phone Leandra Kim APRN Primary Care Provider [phone] Encounter Details Date Type Department Care Team (Latest Contact Info) Description 07/26/2025 Travel Social History Tobacco Use Types Packs/Day [...] any time in the past [address] [facility], were you homeless or living in a residential (including now)? No 04/27/2025 Safety and Environment [...] Description 11/20/2025 9:00 AM EST Office Visit [facility] [address] [place] [address] Leandra Kim APRN [address] [facility] [address] [place] [address] documented as of this encounter Visit Diagnoses [...] documented as of this encounter Care Teams Ammunition Specialist Relationship Specialty Start Date End Date Leandra Kim APRN [address] [place] [address] [address] [place] [id number] PCP - General Family Medicine 07/20/25 documented as of this encounter
--- OUTSIDE RECORDS SUMMARY | 2025-08-06 22:27 | XMS_ITS | Clinical Summary ---
Author Organization [facility] Address [address] [place] [address] Care Team Providers Care Statement Clerk Name Role Phone Leandra Kim APRN Primary Care Provider [phone] Allergies Active Allergy Reactions Criticality Noted Date Comments Diphenhydramine Other - please document in the comment field High 11/13/2015 Excessive hyperactivity Codeine Itching High 09/13/2010 Latex Rash Low 08/26/2023 Oxycodone-Acetaminophen Nausea And Vomiting 08/03/2019 Penicillins Itching,Nausea And Vomiting High 09/13/2010 Prochlorperazine Other - please document in the comment field High 07/08/2011 akathesia Gets severely agitated Sertraline Hallucinations,Ot her - please document in the comment field High 09/14/2015 Anger and auditory hallucinations Sulfa Drugs Hives,Shortness of breath,Swelling High 04/22/2011 Medications testosterone cypionate (Depo-Testoste jerry) 200 MG/ML injectionIndic ations:Transge nder Male Inject 60mg (0.3mL) subcutaneous every weeks 2 mL 5 04/27/20 25 Active Syringe/Needle , Disp, (B-D 3CC LUER-OLVIN SYR 25GX5/8 ) 25G X 5/8 3 ML miscIndication s:gender dysphoria Use to inject hormone as directed 12 each 04/27/20 25 Active Needle, Disp, 21G X 1 miscIndication s:gender dysphoria Use to draw up hormone as directed 12 each 04/27/20 25 Active Multiple Vitamin (multivitamin) tablet Take 1 tablet by mouth daily. Active magnesium oxide (Mag-Ox) 400 (240 Mg) MG tablet Take 1 tablet by mouth daily. Active omega-3 (Fish Oil) 1000 MG capsule Take 1 capsule by mouth 2 times a day with meals. Active lamoTRIgine (LaMICtal) 100 MG tabletIndicati ons:Depression with anxiety Take 1 tablet (100 mg) by mouth 1 (one) time each day. 90 tablet 3 08/26/20 23 025 Discontinu ed(Per Patient Report) albendazole (Albenza) 200 MG tabletIndicati ons:Pinworms Take 1 tab PO now; take 2nd in 2 weeks 2 tablet 10/21/19 24 025 Discontinu ed(Per Patient Report) busPIRone (Buspar) 15 MG tabletIndicati ons:Depression with anxiety Take 1 tablet (15 mg) by mouth 2 (two) times a day. 60 tablet 11 11/02/19 24 025 Discontinu ed(Per Patient Report) DULoxetine (Cymbalta) [address] capsuleIndicat ions:Depressio n with anxiety Take 1 capsule (30 mg) by mouth 1 (one) time each day. Do not crush or chew. 90 capsule 3 04/13/20 24 025 Discontinu ed(Per Patient Report) diclofenac (Voltaren) 1 % topical gelIndications :Polyarthralgi a Place 2-4 g on the skin 3 (three) times a day. Apply as directed to left elbow 350 g 2 04/13/20 24 Discontinu ed(Per Patient Report) Active Problems Problem Noted Date Diagnosed Date Pinworms 10/24/2023 Assessment & Plan (10/24/2023 11:51 PM EST): - pictures do look c/w pinworms/threadworms and appears they are actually often asymptomatic - treat with albendazole per guidelines if affordable - increase attention to oral/anal hygiene [place]; difficult there and many coworkers do not wash hands - avoid any anal intercourse until sure fully treated without recurrence Gender dysphoria 05/18/2023 Assessment & Plan (09/01/2023 2:49 PM EST): -Continue current dose of testosterone. Check testosterone and estradiol levels, CMP, CBC. Can adjust dose based on results. RTC 3 months. Assessment & Plan (05/18/2023 4:28 PM EDT): -Demonstrates symptoms of consistent and persistent dysphoria. Will continue masculinizing HRT. Consent form signed by patient. Given information on support groups, behavioral health, treatment expectations. Answered questions. Will follow-up 3 months after beginning medication for labs and to titrate medication as necessary. Acute superficial gastritis without hemorrhage 0 05/24/2018 Overview (10/21/2023): On EGD Abdominal pain, RUQ (right upper quadrant) 04/01 Closed fracture of left proximal humerus 015 Episodic mood disorder 01/03/2015 Overview (10/21/2023): With cutting; seen at [facility] Glenoid labrum tear 05/30/2014 Overview (10/21/2023): Bilateral. SLAP and rotator. No surgery. Did physical therapy Encounters Date Type Department Care Team Description 08/02/2025 Results Follow-Up [facility] [address] [place] [phone] Leandra Kim APRN 08/01/2025 8:20 AM EST Clinical Support [facility] [address] [place] [phone] Healthcare maintenance; Health care maintenance; Insulin resistance; Encounter for HCV screening test for low risk patient; Screening for human immunodeficiency virus 08/01/2025 Travel 07/26/2025 Travel 07/20/2025 7:20 AM EDT Office Visit [facility] [address] [place] [phone] Leandra Kim APRN Healthcare maintenance (Primary Dx); Health care maintenance; Encounter for HCV screening test for low risk patient; Screening for human immunodeficiency virus; Insulin resistance; Dyspepsia; Restless sleeper; Chronic fatigue; Snores; Sleep walking and eating 07/20/2025 Travel from Last 3 Months Immunizations Immunization Administration Dates Next Due DTaP 12/21/2002, 0,03/22/1999,12/27,1998 HPV, Quadrivalent 04/02/2015,05/13/2013,04/12/20 13 Hep A, ped/adol, 2 dose 07/22/2016,04/02/2015 Hep B, Unspecified 05/30/1999,1998, 998 HiB, unspecified 12/05/1999, 9,1998,11/01 IPV 12/21/2002, 9,1998,11/01 Influenza, Unspecified 08/29/2016,06/18/2012 Influenza, injectable, quadrivalent 10/10/2013 Influenza, injectable, quadr ivalent, preservative free 10/21/2023 Influenza, seasonal, injectable 08/29/2016,07/22 MMR 12/21/2002,12/05/1999 Meningococcal MCV4P 11/04/2016,05/13/2011 Moderna COVID-19 Vaccine (Re d Cap) 12+ years 04/17/2021 Tdap 02/28/2020,02/08/2010 Family History Medical History Relation Name Comments Diabetes Maternal Grandfather Aiden Diabetes Maternal Grandmother Karla Kidney disease Maternal Grandmother Karla Depression Mother Sheryl Diabetes Mother Sheryl Learning disabilities Mother Sheryl Mental illness Mother Sheryl Stroke Mother Sheryl Relation Name Status Comments Maternal Grandfather Aiden Maternal Grandmother Karla Saucedo Social History Tobacco Use Types Packs/Day Years [...] any time in the past 12 m [facility], were you homeless or living in a senior care (including now)? No 04/27/2025 Safety and Environment [...] In the past 12 months has th [employer], gas, oil, or water [employer] threatened to shut off services in your home? No 04/27/2025 PHQ-2A Answer Date Recorded Patient Health Questionnaire-2 Score 4 08/26/2023 Comments No Sex and Gender Information Value Date Recorded Sex Assigned at Female 05/18/2023 2:03 PM EDT Legal Sex Male 6:47 AM EDT Gender Identity Transgender Male 05/18/2023 2:03 PM EDT Sexual Orientation Not on file Last Filed Vital Signs Vital Sign Reading Time Taken Comments Blood Pressure 112/75 07/20/2025 7:30 AM EDT Pulse 85 07/20/2025 7:30 AM EDT Temperature 36.7 C (98.1 F) 07/20/2025 7:30 AM EDT Respiratory Rate 17 04/13/2024 3:50 PM EDT Oxygen Saturation 99% 07/20/2025 7:30 AM EDT Inhaled Oxygen Concentration - - Weight 85 kg (187 lb 6.3 oz) 07/20/2025 7:30 AM EDT Height 170.2 cm (5' 7 ) 07/20/2025 7:30 AM EDT Body Mass Index 29.35 07/20/2025 7:30 AM EDT Plan of Treatment Upcoming Encounters Date Type Department Care Team (Late st Contact Info) Description 11/20/2025 9:00 AM EST Office Visit [facility] [address] [place] [phone] Leandra Kim, IRIS [address] [facility] [address] [place] [address] Health Maintenance Due Date Last Done Comments [facility]-Varicella Vaccines (1 of 2 - 13+ 2-dose series) 2011 [id number] Vaccine (2 - 2024- season) 2025 04/17/2021 [facility]-Influenza Vaccine (#1) 05/29/202510/21, 08/29/2016, 08/29/2016, Additional history exists [facility]- SDOH Screenings 10/28/2025 [facility]-Adult SDOH Screenings 10/28/2025 04/27/2025 [facility]-/Child/Adol SDOH Screenings 10/28/2025 04/27/2025 [facility]-Depression Screening 07/20/2026 07/20/2025, 06/29 [facility]-DTaP,Tdap,and Td Vaccines (8 - Td or Tdap) 02/27/2030 02/28/2020, 02/08/2010, 12/21/2002, Additional history exists [facility]-Zoster Vaccines (1 of 2) 2048 [facility]-Hepatitis B Vaccines Completed 999, 1998, 1998 [facility]-HIB Vaccines Completed 12/05/1999, , 1998, Additional history exists [facility]-IPV Vaccines Completed 12/21/2002, 03/1999, 1998, Additional history exists HPV Vaccines Completed 04/02/2015, 04/28, 04/12/2013 [facility]-Hepatitis A Vaccines Completed 07/22/2016, 02/2015 [facility]-HIV Screening Completed 08/01/2025 [facility]-Hepatitis C Screening Completed 08/01/2025 [facility]-Obesity Intervention Completed 025, 07/20/2025, 04/27/2025, Additional history exists [facility]-Pneumococcal Vaccine: Pediatrics (0 to 5 Years) and At-Risk Patients (6 to 49 Years) Aged Out No longer eligible based on patient's age to complete this topic [facility]-Rotavirus Vaccines Aged Out No lo nger eligible based on patient's age to complete this topic Procedures Procedure Name Priority Date/Time Associated Diagnosis Comments HIV 1/2 ANTIBODY/ANTIGEN SCREEN WITH REFLEX TO HIV I/II DIFFERENTIATION Routine 08/01/2025 8:40 AM EST Screening for human immunodeficiency virus HEMOGLOBIN A1C Routine 08/01/2025 8:40 AM EST Insulin resistance VITAMIN D 25 HYDROXY Routine 08/01/2025 8:40 AM EST Healthcare maintenance VITAMIN B12, SERUM Routine 08/01/2025 8: 40 AM EST Health care maintenance TSH REFLEX FT4 Routine 08/01/2025 8:40 AM EST Healthcare maintenance Insulin resistance LIPID PROFILE, PLASMA Routine 08/01/2025 8:40 AM EST Health care maintenance IRON & TOTAL IRON BINDING CAPACITY, PLASMA (INCLUDES TRANSFERRIN) Routine 08/01/2025 8:40 AM EST Health care maintenance HIV 1/2 ANTIBODY/ANTIGEN SCREEN W/REFLEX TO HIV 1/2 ANTIBODY DIFFERENTIATION Routine 08/01/2025 8:40 AM EST Screening for human immunodeficiency virus HEPATITIS C ANTIBODY W/REFLEX TO HCV QUANT PCR Routine 08/01/2025 8:40 AM EST Encounter for HCV screening test for low risk patient HEPATITIS B SURFACE ANTIGEN Routine 08/01/2025 8:40 AM EST Health care maintenance HEPATITIS B SURFACE ANTIBODY, QUANTITATIVE Routine 08/01/2025 8:40 AM EST Health care maintenance HEPATITIS B CORE ANTIBODY IGM Routine 08/01/2025 8:40 AM EST Health care maintenance HEPATITIS A ANTIBODY IGG Routine 08/01/2025 8:40 AM EST Health care maintenance FOLATE, SERUM Routine 08/01/2025 8:40 AM EST Health care maintenance COMPREHENSIVE METABOLIC PANEL, PLASMA Routine 08/01/2025 8:40 AM EST Health care maintenance Insulin resistance CBC WITH AUTO DIFFERENTIAL Routine 08/01/2025 8:40 AM EST Healthcare maintenance from Last 3 Months Results * (ABNORMAL) Hepatitis B Surface Antibody, Quantitative (08/01/2025 8:40 AM EST) Hepatitis B Surface Antibody, Quantitative 38.15(H) NonReacti ve: <8, Grayzone: 8 - <12, Reactive: >= 12 mIU/mL 08/01/2025 4:44 PM EST [facility] Comment: Reactive. Individual is considered immune to HBV infection. Blood Venous blood specimen / Unknown Venipuncture / Unknown 08/01/2025 8:40 AM EST 08/01/2025 1:53 PM EST [facility] ORDER[facility] Final Re sult Performing Organization Address City/[facility]/ZIP Co de Phone Number [facility] [address] [place] [address] * TSH Reflex FT4 (08/01/2025 8:40 AM EST) Pathologist [facility] [place] Thyroid Stimulating Hormone, Plasma 1.67 0.40 - 4.20 uIU/mL 08/01/2025 2:[address] [facility] Blood Venous blood specimen / Unknown Venipuncture / Unknown 08/01/2025 8:40 AM EST 08/01/2025 1:47 PM EST [facility] BLOOD ORDERABLES Final Re sult Performing Organization Address [facility] Co de Phone Number [facility] [address] [place] [address] * HIV 1 & 2 Antibody/Antigen Screen (08/01/2025 8:40 AM EST) [facility] HIV 1 & 2 Antibody/Antigen Screen Non Reactive Non Reactive 08/01/2025 2:31 PM EST [facility] Comment:Screening for HIV 1 & 2 antibodies, and P24 antigen is NONREACTIVE. No confirmatory testing is required. Blood Venous blood specimen / Unknown Venipuncture / Unknown 08/01/2025 8:40 AM EST 08/01/2025 1:53 PM EST [facility] BLOOD ORDERABLES Final Re sult Performing Organization Address City/[facility] Co de Phone Number [facility] [address] [place] [address] * (ABNORMAL) Hepatitis A Antibody IgG (08/01/2025 8:40 AM EST) Pathologist [facility] [place] Hepatitis A Antibody IgG Positive(A ) Negative 08/01/2025 4:44 PM EST [facility] Blood Venous blood specimen / Unknown Venipuncture / Unknown 08/01/2025 8:40 AM EST 08/01/2025 1:53 PM EST Leandra Kim [employer] LAB BLOOD ORDERABLES Final Re sult Performing Organization Address City/[facility]/ZIP Co de Phone Number [facility] [address] [place] [address] * Hepatitis C Antibody w/Reflex to HCV Quant PCR (08/01/2025 8:40 AM EST) Hepatitis C Antibody Negative Negative 08/01/2025 2:31 PM EST [facility] Blood Venous blood specimen / Unknown Venipuncture / Unknown 08/01/2025 8:40 AM EST 08/01/2025 1:52 PM EST [facility] [employer] LAB BLOOD ORDERABLES Final Re sult Performing Organization Address [facility] Co de Phone Number [facility] [address] [place] [address] * Iron & Total Iron Binding Capacity, Plasma (Includes Transferrin) (08/01/2025 8:40 AM EST) Iron, Plasma 77 50 - 170 ug/dL 08/01/2025 2:17 PM EST [facility] Transferrin, Plasma 277 200 - 360 mg/dL 08/01/2025 2:17 PM EST [facility] Total Iron Binding Capacity, Plasma 346 240 - 450 ug/mL 08/01/2025 2:17 PM EST [facility] Transferrin Saturation 22 14 - 50 % 08/01/2025 2:17 PM EST [facility] Blood Venous blood specimen / Unknown Venipuncture / Unknown 08/01/2025 8:40 AM EST 08/01/2025 1:47 PM EST [facility] [employer] LAB BLOOD ORDERABLES Final Re sult [facility] [address] [place] [address] * Hepatitis B Core Antibody IgM (08/01/2025 8:40 AM EST) Hepatitis B Core Antibody IgM Negative Negative 08/01/2025 4:[address] [facility] Blood Venous blood specimen / Unknown Venipuncture / Unknown 08/01/2025 8:40 AM EST 08/01/2025 1:53 PM EST [facility] Final Re sult Performing Organization Address [facility]/ZIP Co de Phone Number [facility] [address] [place] [address] * Vitamin D 25 Hydroxy (08/01/2025 8:40 AM EST) Pathologist [facility] [place] Vitamin D 25 Hydroxy 45.5 20.0 - 80.0 ng/mL 08/01/2025 2:[address] [facility] Blood Venous blood specimen / Unknown Venipuncture / Unknown 08/01/2025 8:40 AM EST 08/01/2025 1:46 PM EST Narrative [facility] - 08/01/2025 2:55 PM EST Testing performed on [employer], standardized against NIST SRM 2972. When testing [...] to 80 ng/mL Possible toxicity: >100 ng/mL [facility]LOOD ORDERABLES Final Re sult Performing Organization Address City/[facility]/ZIP Co de Phone Number [facility] [address] [place] [address] * Hepatitis B Surface Antigen (08/01/2025 8:40 AM EST) Hepatitis B Surf Antigen Negative Negative 08/01/2025 4:44 PM EST [facility] Blood Venous blood specimen / Unknown Venipuncture / Unknown 08/01/2025 8:40 AM EST 08/01/2025 1:53 PM EST us Leandra Kim [employer] LAB BLOOD ORDERABLES Final Re sult [facility] [address] [place] [address] * (ABNORMAL) CBC and Differential (08/01/2025 8:40 AM EST) WBC Count 6.82 3.70 - 10.30 10*3/uL LAB HEMATOLOGY METHOD 08/01/2025 1:58 PM EST [facility] RBC Count 4.86 4.60 - 6.10 10*6/uL LAB HEMATOLOGY METHOD 08/01/2025 1:58 PM EST [facility] HGB 13.5(L) 13.7 - 17.5 g/dL LAB HEMATOLOGY METHOD 08/01/2025 1:58 PM EST [facility] HCT 42.8 40.0 - 51.0 % LAB HEMATOLOGY METHOD 08/01/2025 1:58 PM EST [facility] Platelet Count 296 155 - 369 10*3/uL LAB HEMATOLOGY METHOD 08/01/2025 1:58 PM EST [facility] MCV 88 79 - 98 fL LAB HEMATOLOGY METHOD 08/01/2025 1:58 PM EST [facility] MCH 27.8 26.0 - 32.0 pg LAB HEMATOLOGY METHOD 08/01/2025 1:58 PM EST [facility] MCHC 31.5 30.7 - 35.5 g/dL LAB HEMATOLOGY METHOD 08/01/2025 1:58 PM EST [facility] RDW 12.6 11.5 - 14.5 % LAB HEMATOLOGY METHOD 08/01/2025 1:58 PM EST [facility] MPV 10.5 8.8 - 12.5 fL LAB HEMATOLOGY METHOD 08/01/2025 1:58 PM EST [facility] nRBC 0.0 <=0.0 per 100 WBCs LAB HEMATOLOGY METHOD 08/01/2025 1:58 PM EST [facility] Differential Type Automated LAB HEMATOLOGY METHOD 08/01/2025 1:58 PM EST [facility] Neutrophils % 58 % LAB HEMATOLOGY METHOD 08/01/2025 1:58 PM EST [facility] Lymphocytes % 34 % LAB HEMATOLOGY METHOD 08/01/2025 1:58 PM EST [facility] Monocytes % 6 % LAB HEMATOLOGY METHOD 08/01/2025 1:58 PM EST [facility] Eosinophils % 1 % LAB HEMATOLOGY METHOD 08/01/2025 1:58 PM EST [facility] Basophils % 1 % LAB HEMATOLOGY METHOD 08/01/2025 1:58 PM EST [facility] Immature Granulocytes % 0 % LAB HEMATOLOGY METHOD 08/01/2025 1:58 PM EST [facility] Neutrophils Absolute 3.90 1.60 - 6.10 10*3/uL LAB HEMATOLOGY METHOD 08/01/2025 1:58 PM EST [facility] Lymphocytes Absolute 2.34 1.20 - 3.90 10*3/uL LAB HEMATOLOGY METHOD 08/01/2025 1:58 PM EST [facility] Monocytes Absolute 0.42 0.30 - 0.90 10*3/uL LAB HEMATOLOGY METHOD 08/01/2025 1:58 PM [facility] Eosinophils Absolute 0.09 0.00 - 0.50 10*3/uL LAB HEMATOLOGY METHOD 08/01/2025 1:58 PM EST [facility] Basophils Absolute 0.05 0.00 - 0.10 10*3/uL LAB HEMATOLOGY METHOD 08/01/2025 1:58 PM [facility] Immature Granulocytes Absolute 0.02 0.00 - 0.06 10*3/uL LAB HEMATOLOGY METHOD 08/01/2025 1:58 PM EST [facility] Blood Venous blood specimen / Unknown Venipuncture / Unknown 08/01/2025 8:40 AM EST 08/01/2025 1:48 PM EST [facility] - 08/01/2025 1:58 PM EST Therapeutic decision making should be based on absolute values, rather than percentages. us Leandra Kim [employer] LAB BLOOD ORDERABLES Final Re sult [facility] [address] [place] [address] * Hemoglobin A1c (08/01/2025 8:40 AM EST) Hemoglobin A1c 5.3 <5.7 % 08/01/2025 5:15 PM EST [facility] Blood Venous blood specimen / Unknown Venipuncture / Unknown 08/01/2025 8:40 AM EST 08/01/2025 1:48 PM EST Narrative [facility] - 08/01/2025 5:15 PM EST [facility] Interpretive Data: Diagnosis of Diabetes: Diabetic > or = 6.5% Pre-diabetic 5.7 to 6.4% Non-diabetic < or = 5.6% Glycemic Targets for Type I and Type II Diabetics: Non- Adults <7.0% Adults <6.0% Children and Adolescents <7.5% Source: [place] [employer]. Standards of medical care in diabetes,2017. Diabetes Care.2017:40 (suppl 1):S1-S135. [facility] LAB BLOOD ORDERABLES Final Re sult [facility] [address] [place] [address] * Folate, Serum (08/01/2025 8:40 AM EST) Folate, Serum 12.1 >4.6 ng/mL 08/01/2025 2:35 PM EST [facility] Blood Venous blood specimen / Unknown Venipuncture / Unknown 08/01/2025 8:40 AM EST 08/01/2025 1:53 PM EST [facility]LOOD ORDERABLES Final Re sult [facility] [address] [place] [address] * Vitamin B12, Serum (08/01/2025 8:40 AM EST) Vitamin B12, Serum 907 210 - 1,033 pg/mL 08/01/2025 2:35 PM EST [facility] Blood Venous blood specimen / Unknown Venipuncture / Unknown 08/01/2025 8:40 AM EST 08/01/2025 1:53 PM EST us Leandra Kim [employer] LAB BLOOD ORDERABLES Final Re sult [facility] [address] [place] [address] * (ABNORMAL) Lipid Profile, Plasma (08/01/2025 8:40 AM EST) Cholesterol, Plasma 194 <200 mg/dL 08/01/2025 2:17 PM EST [facility] Comment: Cholesterol Reference Range (age >17 years): Desirable <200 mg/dL Borderline 200 to 239 mg/dL Undesirable >239 mg/dL HDL 75 >=40 mg/dL 08/01/2025 2:17 PM EST [facility] Comment: HDL Cholesterol Reference Ranges (age >17 years): Female, acceptable > or = 50 mg/dL Male, acceptable > or = 40 mg/dL Triglycerides, Plasma 25 <150 mg/dL 08/01/2025 2:17 PM EST [facility] Comment: Triglyceride Reference Range (age >17 years): Desirable: <150 mg/dL Borderline high: 150 to 199 mg/dL High: 200 to 499 mg/dL Very high: >499 mg/dL Increased risk of pancreatitis: >1000 mg/dL Cholesterol/HDL Ratio 3 08/01/2025 2:17 PM EST [facility] LDL, Calculated 114(H) <100 mg/dL 2:17 PM EST [facility] Comment: LDL Cholesterol Reference Range [...] 12 hours? Yes 08/01/2025 2:17 PM EST [facility] Blood Venous blood specimen / Unknown Venipuncture / Unknown 08/01/2025 8:40 AM EST 08/01/2025 1:47 PM EST us Leandra Kim [employer] LAB BLOOD ORDERABLES Final Re sult [facility] [address] [place] [address] * Comprehensive Metabolic Panel, Plasma (08/01/2025 8:40 AM EST) Glucose, Plasma 85 74 - 99 mg/dL 08/01/2025 2:17 PM EST [facility] BUN, Plasma 12 7 - 21 mg/dL 08/01/2025 2:17 PM EST [facility] Creatinine, Plasma 0.86 0.70 - 1.20 mg/dL 08/01/2025 2:17 PM EST [facility] BUN/Creatinine Ratio 14 08/01/2025 2:17 PM EST [facility] Sodium, Plasma 140 136 - 145 mmol/L 08/01/2025 2:17 PM EST [facility] Potassium, Plasma 3.9 3.6 - 4.9 mmol/L 08/01/2025 2:17 PM EST [facility] Chloride, Plasma 104 97 - 107 mmol/L 08/01/2025 2:17 PM EST [facility] CO2, Plasma 25 22 - 29 mmol/L 08/01/2025 2:17 PM EST [facility] Anion Gap 11 6 - 16 mmol/L 08/01/2025 2:17 PM EST [facility] Total Calcium, Plasma 9.9 8.9 - 10.2 mg/dL 08/01/2025 2:17 PM EST [facility] Total Protein 7.6 6.3 - 7.9 g/dL 08/01/2025 2:17 PM EST [facility] Albumin, Plasma 4.5 3.5 - 5.2 g/dL 08/01/2025 2:17 PM EST [facility] AST, Plasma 24 10 - 50 U/L 08/01/2025 2:17 PM EST [facility] ALT, Plasma 18 10 - 50 U/L 08/01/2025 2:17 PM EST [facility] Alkaline Phosphatase, Plasma 97 40 - 115 U/L 08/01/2025 2:17 PM EST [facility] Total Bilirubin, Plasma 0.7 0.2 - 1.1 mg/dL 08/01/2025 2:17 PM EST [facility] eGFRcr 122.5 mL/min/1.7 3m*2 08/01/2025 2:17 PM EST [facility] Comment:Reported eGFRcr in m L/min/1.73m2 is based the CKD-EPI 2020 equation that does not use a race coefficient. Blood Venous blood specimen / Unknown Venipuncture / Unknown 08/01/2025 8:40 AM EST 08/01/2025 1:47 PM EST Leandra Kim APRN LAB BLOOD ORDERABLES Final Re sult [facility] [address] [place] [address] from Last 3 Months Insurance [facility] Care Teams Statement Clerk Relationship Specialty Start Date End Date Leandra Kim APRN [address] [place] [address] [address] [place] [address] PCP - General Family Medicine 07/20/25
--- OUTSIDE RECORDS SUMMARY | 2025-08-06 22:27 | XMS_ITS | Clinical Summary ---
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 Role Phone Unavailable Primary Care Provider Unavailabl e Allergies Active Allergy Reactions Criticality Noted Date Comments Codeine 01/17/2023 Sulfa Antibiotics 01/17/2023 Social History Tobacco Use Types Packs/Day Years Used Date Smoking Tobacco: Never Assessed Sex and Gender Information Value Date Recorded Sex Assigned at Not on file Legal Sex Male 1:08 PM EDT Gender Identity Not on file Sexual Orientation Not on file Last Filed Vital Signs Vital Sign Reading Time Taken Comments Blood Pressure 110/74 01/18/2023 7:30 AM EDT Pulse 54 01/18/2023 7:30 AM EDT Temperature 36.7 C (98.1 F) 01/17/2023 8:20 PM EDT Respiratory Rate 10 01/18/2023 7:30 AM EDT Oxygen Saturation 97% 01/18/2023 7:30 AM EDT Inhaled Oxygen Concentration - - Weight - - Height 170.2 cm (5' 7 ) 01/17/2023 8:20 PM EDT Body Mass Index - - Plan of Treatment Health Maintenance Due Date Last Done Comments Tdap/Td Vaccine >11 yo (7 - Td or Tdap) 02/09/2020 02/08/2010, 12/21/2002, 06/09/2000, Additional history exists Annual SDOH Screening 09/28/2024 Influenza Vaccine (#1) 2025 6, 08/29/2016, 07/22/2016, Additional history exists Hepatitis B (HepB) Vaccine Completed 05/30, 1998, 1998 Haemophilus Influenzae Type B (Hib) Vaccine Completed 12/05/1999, 03/22/1999, 1998, Additional history exists Polio (IPV) Completed 12/21/2002, 03/1999, 1998, Additional history exists HPV Vaccine Completed 04/02/2015, 04/28, 04/12/2013 Hepatitis A (HepA) Vaccine Completed 07/22/2016, Meningococcal ACWY Completed 11/04/2016, 05/13/2011 Pneumococcal Vaccines 6-49 yo Risk Aged Out No longer eligible based on patient's age to complete this topic Rotavirus (RV) Vaccine Aged Out No lo nger eligible based on patient's age to complete this topic Insurance ANTHEM ANTHEM
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
[2025-08-06] MEDS: IBUPROFEN 400 MG TABLET 800 MG PO (22:47)
[2025-08-06] MEDS: ACETAMINOPHEN 500MG TAB 1000 MG PO (22:48)
[2025-08-06] MEDS: LIDOCAINE 5% TRANSDERMAL PATCH 1 EACH TD (22:48)
[2025-08-06] MEDS: METHOCARBAMOL 500MG TABLET 500 MG PO (22:48)
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
[2025-08-07 00:03] VITALS: BP 132/78; PULSE 71; RESP 18; TEMP 37.1; O2SAT 98
== END 2025-08-07 00:12 | disposition home or self-care (01) ==
PROVIDERS: Emergency Provider Emergency Medicine; PCP Nurse Practitioner Family
DX: R51.9 Headache, unspecified (principal); M54.2 Cervicalgia; M62.838 Other muscle spasm; V47.5XXA Car driver injured in collision with fixed or stationary object in traffic accident, initial encounter
CPT/HCPCS: 70450; 72125; 72128; 99283; 99285

== ENCOUNTER 2025-09-22 11:24 | Outpatient (CLI) | payer BC, SELFPAY ==
--- OUTSIDE RECORDS SUMMARY | 1999-07-08 23:00 | XMS_ITS | Encounter Summary ---
Author Organization [facility] Address [address] [place] [id number] Care Team Providers Care Spares Scheduler Name Role Phone Unavailable Primary Care Provider Unavailabl e Encounter Details Date Type Department Care Team (Late st Contact Info) Description 07/09/1999 Hospital Encounter [facility] Department of Radiology [address] [place] [phone] Social History Tobacco Use Types Packs/Day Years Used Date Smoking Tobacco: Former Cigarettes Smokeless Tobacco: Current Chew Alcohol Use Standard Drinks/Week Comments No 0 (1 standard drink = 0.6 oz pur e alcohol) Intimate Partner Violence Answer Date R ecorded If you are in a relationship , do you feel safe in that relationship? Not currently in a relationship 01/13/2023 If you are in a relationship , do you feel safe in that relationship? Not currently in a relationship 01/13/2023 Financial Resource Strain Answer Date R ecorded Are you currently having pro blems with any of the following? Select all that apply. No - I do not use these benefits 01/13/2023 Are you having trouble payin g for any of the things that you and your family need? Select all that apply. None 01/13/2023 Trouble paying for things yo u need (Other) Not on file 01/13/2023 Food Insecurity Answer Date Recorded * Within the past 12 months, did you/your family worry whether your food would run out before you got money or SNAP/food stamps to buy more? No 01/13/2023 * In the past 12 months, the food you/your family bought did not last and you didn't have money to get more. Never true 2022 Are you worried that you valdemar l not have enough food for yourself or your family this week? No 01/13/2023 Transportation Needs Answer Date Record ed In the past 12 months, has l ack of transportation kept you from medical appointments, the pharmacy, meetings, work or from getting things needed for daily living? No 01/13/2023 Do you currently have troubl e getting to doctor's appointments or to the pharmacy? No 01/13/2023 Housing Stability Answer Date Recorded What is your living situation today? I have a st epi place to live 01/13/2023 Do you have problems with an y of these things where you live today? Select all that apply. None 01/13/2023 Housing Problems - Other Not on file 023 Safety and Environment Answer Date Asad rded Do you have any concerns of physical abuse, sexual abuse, or neglect of your child? No 01/13/2023 Adult hurting you or family (11-18) Not on file 01/13/2023 Someone touched you in a sexual way? (11-18) Not on file 01/13/2023 Is someone hurting your or your family? No 01/13/2023 Historical abuse worry Not on file 3 If you have firearms in the home, are they all in locked storage AND unloaded? Not on file 01/13/2023 Comments Unknown Sex and Gender Information Value Date Recorded Sex Assigned at Female 06/14/2018 5:02 PM EDT Legal Sex Female 5:25 AM EST Gender Identity Transgender Male 06/14/2018 5:02 PM EDT Sexual Orientation Straight 06/14/2018 5: 02 PM EDT documented as of this encounter Plan of Treatment Not on file documented as of this encounter Visit Diagnoses Not on filedocumented in this encounter
--- OUTSIDE RECORDS SUMMARY | 2002-03-14 23:00 | XMS_ITS | Encounter Summary ---
Author Organization [facility] Address [facility] [place] [address] Care Team Providers Care Real Estate Attorney Name Role Phone Unavailable Primary Care Provider Unavailabl e Encounter Details Date Type Department Care Team (Late st Contact Info) Description 03/15/2002 Hospital Encounter [facility] Division of Pediatric Otolaryngology [address] [place] [phone] Social History Tobacco Use Types Packs/Day [...]
--- OUTSIDE RECORDS SUMMARY | 2002-05-11 23:00 | XMS_ITS | Encounter Summary ---
Author Organization [facility] Address [address] [place] [address] Care Team Providers Care Upholstery Department Supervisor Name Role Phone Unavailable Primary Care Provider Unavailabl e Encounter Details Date Type Department Care Team (Late st Contact Info) Description 05/12/2002 Hospital Encounter [facility] Division of Otolaryngology [address] [place] [phone] Social History Tobacco Use Types Packs/Day Years [...] No 01/13/2023 Adult hurting you or family (-18) Not on file 01/13/2023 Someone touched you in a sexual way? (-18) Not on file 01/13/2023 Is someone hurting [...]
--- OUTSIDE RECORDS SUMMARY | 2005-12-26 | XMS_ITS | Encounter Summary ---
Author Organization [facility] Address [address] [place] [address] Care Team Providers Care Saw Offbearer Name Role Phone Unavailable Primary Care Provider Unavailabl e Encounter Details Date Type Department Care Team (Late st Contact Info) Description 12/26/2005 Hospital Encounter [facility] Department of Radiology [address] [place] [phone] Social History Tobacco Use Types Packs/Day [...]
--- OUTSIDE RECORDS SUMMARY | 2006-08-21 | XMS_ITS | Encounter Summary ---
Author Organization [facility] Address [address] [place] [address] Care Team Providers Care Public Safety Director Name Role Phone Unavailable Primary Care Provider Unavailabl e Encounter Details Date Type Department Care Team (Late st Contact Info) Description 08/21/2006 Hospital Encounter [facility] Division of Orthopaedics [address] [place] [phone] Social History Tobacco Use Types Packs/Day [...]
--- OUTSIDE RECORDS SUMMARY | 2006-09-11 | XMS_ITS | Encounter Summary ---
Author Organization [facility] Address [address] [place] [address] Care Team Providers Care Digital Service Engineer Name Role Phone Unavailable Primary Care Provider Unavailabl e Encounter Details Date Type Department Care Team (Late st Contact Info) Description 09/11/2006 Hospital Encounter [facility] Division of Orthopaedics [address] [place] [phone] Social History Tobacco Use Types Packs/Day [...]
--- OUTSIDE RECORDS SUMMARY | 2024-01-25 08:35 | XMS_ITS | Encounter Summary ---
Author Organization [facility] Address [address] [place] [id number] Care Team Providers Care Stock Broker Name Role Phone Provider, No Known Primary Care Provider Unavail able Encounter Details Date Type Department Care Team (Latest Contact Info) Description 01/25/2024 9:35 AM EDT Hospital Encounter [facility]IMARY [facility] [address] [place] [address] [place] [phone] Acute pain of right knee Social History Tobacco Use Types Packs/Day Years Used Date Smoking Tobacco: Never Assessed Abuse Screen Answer Date Recorded Unsafe at Home or Work/School Not on file Feels Threatened by Someone? Not on file Does Anyone Keep You from Co ntacting Others or Doint Things Outside the Home? Not on file 01/25/2024 Physical Sign of Abuse Present Not on file 0 01/25/2024 Housing Stability Answer Date Recorded Current Living Arrangements Not on file 12/28 Potentially Unsafe Housing Conditions Not on renetta e 01/25/2024 Family and Community Support Answer Brendan e Recorded Help with Day-to-Day Activities Not on file 01/25/2024 Lonely or Isolated Not on file 01/25/2024 Employment Answer Date Recorded Do you want help finding or keeping work or a grace b? Not on file 01/25/2024 Disabilities Answer Date Recorded Concentrating, Remembering, or Making Decisions Difficulty Not on file 01/25/2024 Doing Errands Independently Difficulty Not on fi le 01/25/2024 Education Answer Date Recorded Help with school or training? Not on file Preferred Language Not on file 01/25/2024 Sex and Gender Information Value Date Recorded Sex Assigned at Not on file Legal Sex Male 9:30 AM EDT Gender Identity Not on file Sexual Orientation Not on file documented as of this encounter Plan of Treatment Not on file documented as of this encounter Procedures Procedure Name Priority Date/Time Associated Diagnosis Comments XR KNEE 3+ VW W SUNRISE RIGHT Routine 01/25/2024 9:46 AM EDT Acute pain of right knee documented in this encounter Results * XR Knee 3+ View With [place] Right (01/25/2024 9:46 AM EDT) Anatomical Region Laterality Modality Lower Extremities, Knee Right Computed Radiography 01/25/2024 3:49 PM EDT Impressions 01/25/2024 3:49 PM EDT Impression: Negative. Electronically Signed: Ce Peoples MD 01/25/2024 3:49 PM EDT Workstation ID: [id number] Narrative 01/25/2024 3:49 PM EDT XR KNEE 3+ VW W SUNRISE RIGHT Date of Exam: 01/25/2024 9:35 AM EDT Indication: Fell on R knee c/o pain Comparison: None available. Findings: 4 views. Joint compartments are well-maintained and normally aligned. There is no fracture or dislocation. There is no definite effusion. Procedure Note Ce Peoples MD - 01/25/2024 XR KNEE 3+ VW W SUNRISE RIGHT Date of Exam: 01/25/2024 9:35 AM EDT Indication: Fell on R knee c/o pain Comparison: None available. Findings: 4 views. Joint compartments are well-maintained and normally aligned.There is no fracture or dislocation. There is no definite effusion. IMPRESSION: Impression: Negative. Electronically Signed: Ce Peoples MD 01/25/2024 3:49 PM EDT Workstation ID: [id number] Jeffrey POP IMG DIAGNOSTIC IMAGING ORDER CARINA Final Result documented in this encounter Visit Diagnoses Diagnosis Acute pain of right knee documented in this encounter Care Teams Stock Broker Relationship Specialty Start Date End Date Provider, [place] [address] PCP - General 01/25/24 documented as of this encounter
--- OUTSIDE RECORDS SUMMARY | 2025-08-01 08:20 | XMS_ITS | Encounter Summary ---
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 Name Role Phone Leandra Kim IRIS Primary Care Provider [phone] Encounter Details Date Type Department Care Team (Latest Contact Info) Description 08/01/2025 8:20 AM EST Clinical Support [facility] [address] [place] [address] Healthcare maintenance; Health care maintenance; Insulin resistance; Encounter for HCV screening test for low risk patient; Screening for human immunodeficiency virus Social History Tobacco Use Types Packs/Day Years Used Date Smoking Tobacco: Never Smokeless Tobacco: Current Chew Comments:Currently using darrian otine pouches, slowly decreasing nicotine content Alcohol Use [...] any time in the past 12 m [facility], were you homeless or living in a snf (including now)? No 04/27/2025 Safety and Environment [...] Recorded In the past 12 months has th e [employer], gas, oil, or water company threatened to shut off services in your home? No 04/27/2025 PHQ-2A Answer Date Recorded Patient Health Questionnaire-2 Score 4 08/26/2023 Comments No Sex and Gender Information Value Date Recorded Sex Assigned at Female 05/18/2023 2:03 PM EDT Legal Sex Male 6:47 AM EDT Gender Identity Transgender Male 05/18/2023 2:03 PM EDT Sexual Orientation Not on file documented as of this encounter Functional Status * Pain Score Answer Date of Assessment Author 0 08/01/2025 9:35 AM Sheree Ramirez RN * Pain Screening/Additional Assessments Question Answer Date of Assessment Author Pain Screening/Assessments Pain Screening 08/01/2025 9:35 AM EST Gilbert Matson RN * Pain Screening Answer Date of Assessment Author 0-10 08/01/2025 9:35 AM EST Sheree Matson RN * Pain Score Answer Date of Assessment Author 0 08/01/2025 9:35 AM Sheree Ramirez RN documented as of this encounter Mental Status * Restart Pain Assessment Timer Answer Entry Date Author Yes 08/01/2025 9:35 AM Sheree Ramirez RN * Pain Score Answer Entry Date Author 0 08/01/2025 9:35 AM Sheree Ramirez RN * Pain Screening Answer Entry Date Author 0-10 08/01/2025 9:35 AM Sheree Ramirez RN documented in this encounter Miscellaneous Notes * Clinician Note - Sheree Matson RN - 08/01/2025 8:20 AM EST Patient presents for labs today. Drawn from left antecubital. No problems noted. documented in this encounter Plan of Treatment Upcoming Encounters Date Type Department Care Team (Late st Contact Info) Description 11/20/2025 9:00 AM EST Office Visit [facility] [address] [place] [address] Leandra Kim APRN [address] [facility] [address] [place] [address] documented as of this encounter Procedures Procedure Name Priority Date/Time Associated Diagnosis Comments HEPATITIS B SURFACE ANTIBODY, QUANTITATIVE Routine 08/01/2025 8:40 AM EST Health care maintenance TSH REFLEX FT4 Routine 08/01/2025 8:40 AM EST Healthcare maintenance Insulin resistance HIV 1/2 ANTIBODY/ANTIGEN SCREEN W/REFLEX TO HIV 1/2 ANTIBODY DIFFERENTIATION Routine 08/01/2025 8:40 AM EST Screening for human immunodeficiency virus HIV 1/2 ANTIBODY/ANTIGEN SCREEN WITH REFLEX TO HIV I/II DIFFERENTIATION Routine 08/01/2025 8:40 AM EST Screening for human immunodeficiency virus HEPATITIS A ANTIBODY IGG Routine 08/01/2025 8:40 AM EST Health care maintenance HEPATITIS C ANTIBODY W/REFLEX TO HCV QUANT PCR Routine 08/01/2025 8:40 AM EST Encounter for HCV screening test for low risk patient IRON & TOTAL IRON BINDING CAPACITY, PLASMA (INCLUDES TRANSFERRIN) Routine 08/01/2025 8:40 AM EST Health care maintenance HC HEP B CORE AB TEST, IGM - HEPATITIS B CORE ANTIBODY, IGM Routine 08/01/2025 8:40 AM EST Health care maintenance VITAMIN D 25 HYDROXY Routine 08/01/2025 8:40 AM EST Healthcare maintenance HC HBSAG Routine 08/01/2025 8:40 AM EST Health care maintenance CBC WITH AUTO DIFFERENTIAL Routine 08/01/2025 8:40 AM EST Healthcare maintenance HEMOGLOBIN A1C Routine 08/01/2025 8:40 AM EST Insulin resistance FOLATE, SERUM Routine 08/01/2025 8:40 AM EST Health care maintenance VITAMIN B12, SERUM Routine 08/01/2025 8: 40 AM EST Health care maintenance LIPID PROFILE, PLASMA Routine 08/01/2025 8:40 AM EST Health care maintenance COMPREHENSIVE METABOLIC PANEL, PLASMA Routine 08/01/2025 8:40 AM EST Health care maintenance Insulin resistance documented in this encounter Results * HIV 1 & 2 Antibody/Antigen Screen (08/01/2025 8:40 AM EST) HIV 1 & 2 Antibody/Antigen Screen Non Reactive Non Reactive 08/01/2025 2:31 PM EST [facility] Comment:Screening for HIV 1 & 2 antibodies, and P24 antigen is NONREACTIVE. No confirmatory testing is required. Blood Venous blood specimen / Unknown Venipuncture / Unknown 08/01/2025 8:40 AM EST 08/01/2025 1:53 PM EST [facility] B[facility] Final Re sult Performing Organization Address City/[facility] Co de Phone Number [facility] [address] [place] [address] * Hemoglobin A1c (08/01/2025 8:40 AM EST) Hemoglobin A1c 5.3 <5.7 % 08/01/2025 5:15 PM EST [facility] Blood Venous blood specimen / Unknown Venipuncture / Unknown 08/01/2025 8:40 AM EST 08/01/2025 1:48 PM EST Narrative [facility] - 08/01/2025 5:15 PM EST HA1C Interpretive Data: Diagnosis of Diabetes: Diabetic > or = 6.5% Pre-diabetic 5.7 to 6.4% Non-diabetic < or = 5.6% Glycemic Targets for Type I and Type II Diabetics: Non- Adults <7.0% Adults <6.0% Children and Adolescents <7.5% Source: [place] [employer]. Standards of medical care in diabetes,2017. Diabetes Care.2017:40 (suppl 1):S1-S135. Leandra Hall [facility] LAB BLOOD ORDERABLES Final Re sult Performing Organization Address City/[facility]/ZIP Co de Phone Number [facility] [address] [place] [address] * Vitamin D 25 Hydroxy (08/01/2025 8:40 AM EST) Vitamin D 25 Hydroxy 45.5 20.0 - 80.0 ng/mL 08/01/2025 2:55 PM EST [facility] Blood Venous blood specimen / Unknown Venipuncture / Unknown 08/01/2025 8:40 AM EST 08/01/2025 1:46 PM EST Narrative [facility] - 08/01/2025 2:55 PM EST Testing performed on [employer], standardized against NIST SRM [id number]. When testing [...] to 80 ng/mL Possible toxicity: >100 ng/mL Leandra Kim [facility] LAB BLOOD ORDERABLES Final Re sult Performing Organization Address City/[facility]/ZIP Co de Phone Number [facility] [address] [place] [address] * Vitamin B12, Serum (08/01/2025 8:40 AM EST) Vitamin B12, Serum 907 210 - 1,033 pg/mL 08/01/2025 2:35 PM EST [facility] Blood Venous blood specimen / Unknown Venipuncture / Unknown 08/01/2025 8:40 AM EST 08/01/2025 1:[address] [facility] Final Re sult [facility] [address] [place] [address] * TSH Reflex FT4 (08/01/2025 8:40 AM EST) Thyroid Stimulating Hormone, Plasma 1.67 0.40 - 4.20 uIU/mL 08/01/2025 2:17 PM EST [facility] Blood Venous blood specimen / Unknown Venipuncture / Unknown 08/01/2025 8:40 AM EST 08/01/2025 1:47 PM EST us Leandra Kim [facility] LAB BLOOD ORDERABLES Final Re sult [facility] [address] [place] [address] * (ABNORMAL) Lipid Profile, Plasma (08/01/2025 8:40 AM EST) Cholesterol, Plasma 194 <200 mg/dL 08/01/2025 2:17 PM EST [facility] Comment: Cholesterol Reference Range (age >17 years): Desirable <200 mg/dL Borderline 200 to 239 mg/dL Undesirable >239 mg/dL HDL 75 >=40 mg/dL 08/01/2025 2:17 PM EST [facility] Comment: HDL Cholesterol Reference Ranges (age >17 years): Female, acceptable > or = 50 mg/dL Male, acceptable > or = 40 mg/dL Triglycerides, Plasma 25 <150 mg/dL 08/01/2025 2:17 PM EST [facility] Comment: Triglyceride Reference Range (age >17 years): Desirable: <150 mg/dL Borderline high: 150 to 199 mg/dL High: 200 to 499 mg/dL Very high: >499 mg/dL Increased risk of pancreatitis: >1000 mg/dL Cholesterol/HDL Ratio 3 08/01/2025 2:17 PM EST [facility] LDL, Calculated 114(H) <100 mg/dL 2:17 PM EST [facility] Comment: LDL Cholesterol Reference Range [...] 12 hours? Yes 08/01/2025 2:17 PM EST [facility] Blood Venous blood specimen / Unknown Venipuncture / Unknown 08/01/2025 8:40 AM EST 08/01/2025 1:47 PM EST Leandra Hall [facility] LAB BLOOD ORDERABLES Final Re sult [facility] [address] [place] [address] * Iron & Total Iron Binding Capacity, Plasma (Includes Transferrin) (08/01/2025 8:40 AM EST) Iron, Plasma 77 50 - 170 ug/dL 08/01/2025 2:17 PM EST [facility] Transferrin, Plasma 277 200 - 360 mg/dL 08/01/2025 2:17 PM EST [facility] Total Iron Binding Capacity, Plasma 346 240 - 450 ug/mL 08/01/2025 2:17 PM EST [facility] Transferrin Saturation 22 14 - 50 % 08/01/2025 2:17 PM EST [facility] Blood Venous blood specimen / Unknown Venipuncture / Unknown 08/01/2025 8:40 AM EST 08/01/2025 1:47 PM EST [facility] LAB BLOOD ORDERABLES Final Re sult Performing Organization Address City/[facility]/ZIP Co de Phone Number [facility] [address] [place] [address] * Hepatitis C Antibody w/Reflex to HCV Quant PCR (08/01/2025 8:40 AM EST) Hepatitis C Antibody Negative Negative 08/01/2025 2:31 PM EST [facility] Blood Venous blood specimen / Unknown Venipuncture / Unknown 08/01/2025 8:40 AM EST 08/01/2025 1:52 PM EST Leandra Hall [employer] LAB BLOOD ORDERABLES Final Re sult [facility] [address] [place] [address] * Hepatitis B Surface Antigen (08/01/2025 8:40 AM EST) Hepatitis B Surf Antigen Negative Negative 08/01/2025 4:44 PM EST [facility] Blood Venous blood specimen / Unknown Venipuncture / Unknown 08/01/2025 8:40 AM EST 08/01/2025 1:53 PM EST [facility] LAB BLOOD ORDERABLES Final Re sult Performing Organization Address City/[facility]/ZIP Co de Phone Number [facility] [address] [place] [address] * (ABNORMAL) Hepatitis B Surface Antibody, Quantitative (08/01/2025 8:40 AM EST) Hepatitis B Surface Antibody, Quantitative 38.15(H) NonReacti ve: <8, Grayzone: 8 - <12, Reactive: >= 12 mIU/mL 08/01/2025 4:44 PM EST [facility] Comment: Reactive. Individual is considered immune to HBV infection. Blood Venous blood specimen / Unknown Venipuncture / Unknown 08/01/2025 8:40 AM EST 08/01/2025 1:53 PM EST [facility] LAB BLOOD ORDERABLES Final Re sult Performing Organization Address [facility]/ZIP Co de Phone Number [facility] [address] [place] [address] * Hepatitis B Core Antibody IgM (08/01/2025 8:40 AM EST) Hepatitis B Core Antibody IgM Negative Negative 08/01/2025 4:44 PM EST [facility] Blood Venous blood specimen / Unknown Venipuncture / Unknown 08/01/2025 8:40 AM EST 08/01/2025 1:53 PM EST [facility] LAB BLOOD ORDERABLES Final Re sult Performing Organization Address City/[facility]/ZIP Co de Phone Number [facility] [address] [place] [address] * (ABNORMAL) Hepatitis A Antibody IgG (08/01/2025 8:40 AM EST) Hepatitis A Antibody IgG Positive(A ) Negative 08/01/2025 4:44 PM EST [facility] Blood Venous blood specimen / Unknown Venipuncture / Unknown 08/01/2025 8:40 AM EST 08/01/2025 1:53 PM EST [facility] BLOOD ORDERABLES Final Re sult Performing Organization Address [facility]/ZIP Co de Phone Number [facility] [address] [place] [address] * Folate, Serum (08/01/2025 8:40 AM EST) Folate, Serum 12.1 >4.6 ng/mL 08/01/2025 2:35 PM EST [facility] Blood Venous blood specimen / Unknown Venipuncture / Unknown 08/01/2025 8:40 AM EST 08/01/2025 1:[address] [facility] Final Re sult Performing Organization Address City/[facility]/ZIP Co de Phone Number [facility] [address] [place] [address] * Comprehensive Metabolic Panel, Plasma (08/01/2025 8:40 AM EST) Glucose, Plasma 85 74 - 99 mg/dL 08/01/2025 2:17 PM EST [facility] BUN, Plasma 12 7 - 21 mg/dL 08/01/2025 2:17 PM EST [facility] Creatinine, Plasma 0.86 0.70 - 1.20 mg/dL 08/01/2025 2:17 PM EST [facility] BUN/Creatinine Ratio 14 08/01/2025 2:17 PM EST [facility] Sodium, Plasma 140 136 - 145 mmol/L 08/01/2025 2:17 PM EST [facility] Potassium, Plasma 3.9 3.6 - 4.9 mmol/L 08/01/2025 2:17 PM EST [facility] Chloride, Plasma 104 97 - 107 mmol/L 08/01/2025 2:17 PM EST [facility] CO2, Plasma 25 22 - 29 mmol/L 08/01/2025 2:17 PM EST [facility] Anion Gap 11 6 - 16 mmol/L 08/01/2025 2:17 PM EST [facility] Total Calcium, Plasma 9.9 8.9 - 10.2 mg/dL 08/01/2025 2:17 PM EST [facility] Total Protein 7.6 6.3 - 7.9 g/dL 08/01/2025 2:17 PM EST [facility] Albumin, Plasma 4.5 3.5 - 5.2 g/dL 08/01/2025 2:17 PM EST [facility] AST, Plasma 24 10 - 50 U/L 08/01/2025 2:17 PM EST [facility] ALT, Plasma 18 10 - 50 U/L 08/01/2025 2:17 PM EST [facility] Alkaline Phosphatase, Plasma 97 40 - 115 U/L 08/01/2025 2:17 PM EST [facility] Total Bilirubin, Plasma 0.7 0.2 - 1.1 mg/dL 08/01/2025 2:17 PM EST [facility] eGFRcr 122.5 mL/min/1.7 3m*2 08/01/2025 2:17 PM EST [facility] Comment:Reported eGFRcr in m L/min/1.73m2 is based the CKD-EPI 2020 equation that does not use a race coefficient. Blood Venous blood specimen / Unknown Venipuncture / Unknown 08/01/2025 8:40 AM EST 08/01/2025 1:47 PM EST us Leandra Kim [facility] LAB BLOOD ORDERABLES Final Re sult [facility] [address] [place] [address] * (ABNORMAL) CBC and Differential (08/01/2025 8:40 AM EST) WBC Count 6.82 3.70 - 10.30 10*3/uL LAB HEMATOLOGY METHOD 08/01/2025 1:58 PM EST [facility] RBC Count 4.86 4.60 - 6.10 10*6/uL LAB HEMATOLOGY METHOD 08/01/2025 1:58 PM [facility] HGB 13.5(L) 13.7 - 17.5 g/dL LAB HEMATOLOGY METHOD 08/01/2025 1:58 PM [facility] HCT 42.8 40.0 - 51.0 % LAB HEMATOLOGY METHOD 08/01/2025 1:58 PM [facility] Platelet Count 296 155 - 369 10*3/uL LAB HEMATOLOGY METHOD 08/01/2025 1:58 PM [facility] MCV 88 79 - 98 fL LAB HEMATOLOGY METHOD 08/01/2025 1:58 PM [facility] MCH 27.8 26.0 - 32.0 pg LAB HEMATOLOGY METHOD 08/01/2025 1:58 PM [facility] MCHC 31.5 30.7 - 35.5 g/dL LAB HEMATOLOGY METHOD 08/01/2025 1:58 PM [facility] RDW 12.6 11.5 - 14.5 % LAB HEMATOLOGY METHOD 08/01/2025 1:58 PM [facility] MPV 10.5 8.8 - 12.5 fL LAB HEMATOLOGY METHOD 08/01/2025 1:58 PM [facility] nRBC 0.0 <=0.0 per 100 WBCs LAB HEMATOLOGY METHOD 08/01/2025 1:58 PM [facility] Differential Type Automated LAB HEMATOLOGY METHOD 08/01/2025 1:58 PM [facility] Neutrophils % 58 % LAB HEMATOLOGY METHOD 08/01/2025 1:58 PM [facility] Lymphocytes % 34 % LAB HEMATOLOGY METHOD 08/01/2025 1:58 PM [facility] Monocytes % 6 % LAB HEMATOLOGY METHOD 08/01/2025 1:58 PM [facility] Eosinophils % 1 % LAB HEMATOLOGY METHOD 08/01/2025 1:58 PM [facility] Basophils % 1 % LAB HEMATOLOGY METHOD 08/01/2025 1:58 PM [facility] Immature Granulocytes % 0 % LAB HEMATOLOGY METHOD 08/01/2025 1:58 PM [facility] Neutrophils Absolute 3.90 1.60 - 6.10 10*3/uL LAB HEMATOLOGY METHOD 08/01/2025 1:58 PM [facility] Lymphocytes Absolute 2.34 1.20 - 3.90 10*3/uL LAB HEMATOLOGY METHOD 08/01/2025 1:58 PM EST [facility] Monocytes Absolute 0.42 0.30 - 0.90 10*3/uL LAB HEMATOLOGY METHOD 08/01/2025 1:58 PM EST [facility] Eosinophils Absolute 0.09 0.00 - 0.50 10*3/uL LAB HEMATOLOGY METHOD 08/01/2025 1:58 PM EST [facility] Basophils Absolute 0.05 0.00 - 0.10 10*3/uL LAB HEMATOLOGY METHOD 08/01/2025 1:58 PM EST [facility] Immature Granulocytes Absolute 0.02 0.00 - 0.06 10*3/uL LAB HEMATOLOGY METHOD 08/01/2025 1:58 PM EST [facility] Blood Venous blood specimen / Unknown Venipuncture / Unknown 08/01/2025 8:40 AM EST 08/01/2025 1:48 PM EST Narrative [facility] - 08/01/2025 1:58 PM EST Therapeutic decision making should be based on absolute values, rather than percentages. Leandra Kim APRN LAB BLOOD ORDERABLES Final Re sult [facility] [address] [place] [address] documented in this encounter Visit Diagnoses Diagnosis Healthcare maintenance Health care maintenance Insulin resistance Other abnormal glucose Encounter for HCV screening test for low risk patient Screening for human immunodeficiency virus Special screening examination for other specified viral diseases documented in this encounter Additional Health Concerns Assessment Noted Time PHQ-9 Depression Total Score: 3 07/20/20 25 7:33 AM EDT A fall risk assessment has been complete d for the patient 06/14/2024 8:16 PM EDT A Body Mass Index follow-up plan has been documented for the patient 08/01/2025 9:35 AM EST documented as of this encounter Care Teams 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
--- NOTE | 2025-09-22 11:26 | XR_ITS ---
FINAL REPORT CLINICAL HISTORY: chest congestion FINDINGS: No acute pulmonary density is evident. There is no evidence of effusion or other pleural disease. The mediastinum has a normal appearance. The cardiac silhouette is unremarkable. IMPRESSION: Unremarkable chest exam. Reviewed, Interpreted and Dictated by Juilan Bruner MD Transcribed by Anette Godfrey Authenticated and [facility]
--- OUTSIDE RECORDS SUMMARY | 2025-09-22 11:27 | XMS_ITS | Clinical Summary ---
Author Organization [facility] Address [address] [place] [address] Care Team Providers Care Clinical Supervisor Name Role Phone Leandra Kim APRN Primary Care Provider [phone] Allergies Active Allergy Reactions Criticality Noted Date [...] of breath,Swelling High 04/22/2011 Medications testosterone cypionate (Depo-Testoster one) 200 MG/ML injectionIndica tions:Transgend er Male Inject 60mg (0.3mL) subcutaneous every weeks 2 mL 5 5 Active Syringe/Needle, Disp, (B-D 3CC LUER-OLVIN SYR 25GX5/8 ) 25G X 5/8 3 ML miscIndications :gender dysphoria Use to inject hormone as directed 12 each 3 5 Active Needle, Disp, 21G X 1 miscIndications :gender dysphoria Use to draw up hormone as directed 12 each 3 5 Active Multiple Vitamin (multivitamin) tablet Take 1 tablet by mouth daily. Active magnesium oxide (Mag-Ox) 400 (240 Mg) MG tablet Take 1 tablet by mouth daily. Active omega-3 (Fish Oil) 1000 MG capsule Take 1 capsule by mouth 2 times a day with meals. Active Active Problems Problem Noted Date Diagnosed Date [...] 01/03/2015 Overview (10/21/2023): With cutting; seen at [facility] Glen[place] labrum tear 05/30/2014 Overview (10/21/2023): Bilateral. SLAP and rotator. No surgery. Did physical therapy Encounters Date Type Department Care Team Description 08/07/[address] [facility] [address] [place] [address] Sheree Matson RN 08/02/2025 Results Follow-Up [facility] [address] [place] [address] Leandra Kim APRN 08/01/2025 8:20 AM EST Clinical Support [facility] [address] [place] [phone] Healthcare maintenance; Health care maintenance; Insulin resistance; Encounter for HCV screening test for low risk patient; Screening for human immunodeficiency virus 08/01/2025 Travel 07/26/2025 Travel 07/20/2025 7:20 AM EDT Office Visit [facility] [address] [place] [phone] Leandra Kim APRN Healthcare maintenance (Primary Dx); [...] Comments Maternal Grandfather Aiden Maternal Grandmother Karla Mother Sheryl Social History Tobacco Use Types Packs/Day Years [...] any time in the past 12 m [facility], were you homeless or living in a usp (including now)? No 04/27/2025 Safety and Environment [...] Description 11/20/2025 9:00 AM EST Office Visit [address] [facility] [address] [place] [address] Leandra Kim APRN [address] [place] [address] Health Maintenance Due Date Last Done Comments [facility]-Varicella Vaccines (1 of 2 - 13+ 2-dose series) 2011 [id number] Vaccine (2 - 2024- season) 2025 04/17/2021 [facility]-Influenza Vaccine (#1) 05/29/202510/21, 08/29/2016, 08/29/2016, Additional history exists [facility]- SDOH Screenings 10/28/2025 [facility]-Adult SDOH Screenings 10/28/2025 04/27/2025 [facility]-Infant/Child/Adol SDOH Screenings 10/28/2025 04/27/2025 [facility]-Depression Screening 07/20/2026 [...] HCV screening test for low risk patient HC HBSAG Routine 08/01/2025 8:40 AM EST [...] >= 12 mIU/mL 08/01/2025 4:44 PM EST [facility] Comment: Reactive. Individual is considered immune to HBV infection. Blood Venous blood specimen / Unknown Venipuncture / Unknown 08/01/2025 8:40 AM EST 08/01/2025 1:53 PM EST [facility] B[facility] ORDER[facility] Final Re sult Performing Organization Address [facility]/State/[facility] Co de Phone Number [facility] [address] [place] [address] * TSH Reflex FT4 (08/01/2025 8:40 AM EST) Thyroid Stimulating Hormone, Plasma 1.67 0.40 - 4.20 uIU/mL 08/01/2025 2:17 PM EST [facility] Blood Venous blood specimen / Unknown Venipuncture / Unknown 08/01/2025 8:40 AM EST 08/01/2025 1:47 PM EST [facility] [employer] LAB BLOOD ORDERABLES Final Re sult Performing Organization Address City/[facility] Co de Phone Number [facility] [address] [place] [address] * HIV 1 & 2 Antibody/Antigen Screen (08/01/2025 8:40 AM EST) HIV 1 & 2 Antibody/Antigen Screen Non Reactive Non Reactive 08/01/2025 2:31 PM EST [facility] Comment:Screening for HIV 1 & 2 antibodies, and P24 antigen is NONREACTIVE. No confirmatory testing is required. Blood Venous blood specimen / Unknown Venipuncture / Unknown 08/01/2025 8:40 AM EST 08/01/2025 1:53 PM EST Leandra Kim [employer] LAB BLOOD ORDERABLES Final Re sult Performing Organization Address [facility] Co de Phone Number [facility] [address] [place] [address] * (ABNORMAL) Hepatitis A Antibody IgG (08/01/2025 8:40 AM EST) Pathologist [facility] Hepatitis A Antibody IgG Positive(A ) Negative 08/01/2025 4:44 PM EST [facility] Blood Venous blood specimen / Unknown Venipuncture / Unknown 08/01/2025 8:40 AM EST 08/01/2025 1:53 PM EST Leandra Kim [employer] LAB BLOOD ORDERABLES Final Re sult Performing Organization Address [facility] Co de Phone Number [facility] [address] [place] [address] * Hepatitis C Antibody w/Reflex to HCV Quant PCR (08/01/2025 8:40 AM EST) Pathologist [facility] Hepatitis C Antibody Negative Negative 08/01/2025 2:31 PM EST [facility] Blood Venous blood specimen / Unknown Venipuncture / Unknown 08/01/2025 8:40 AM EST 08/01/2025 1:52 PM EST Leandra Hall [employer] LAB BLOOD ORDERABLES Final Re sult Performing Organization Address City/[facility]/ZIP Co de Phone Number [facility] [address] [place] [address] * Iron & Total Iron Binding Capacity, Plasma (Includes Transferrin) (08/01/2025 8:40 AM EST) Iron, Plasma 77 50 - 170 ug/dL 08/01/2025 2:17 PM EST [facility] Transferrin, Plasma 277 200 - 360 mg/dL 08/01/2025 2:17 PM EST [facility] Total Iron Binding Capacity, Plasma 346 240 - 450 ug/mL 08/01/2025 2:17 PM EST [facility] Transferrin Saturation 22 14 - 50 % 08/01/2025 2:17 PM EST [facility] Blood Venous blood specimen / Unknown Venipuncture / Unknown 08/01/2025 8:40 AM EST 08/01/2025 1:47 PM EST Leandra Kim [employer] LAB BLOOD ORDERABLES Final Re sult Performing Organization Address City/[facility]/ZIP Co de Phone Number [facility] [address] [place] [address] * Hepatitis B Core Antibody IgM (08/01/2025 8:40 AM EST) Pathologist [facility] Hepatitis B Core Antibody IgM Negative Negative 08/01/2025 4:44 PM EST [facility] Blood Venous blood specimen / Unknown Venipuncture / Unknown 08/01/2025 8:40 AM EST 08/01/2025 1:53 PM EST [facility] [employer] LAB BLOOD ORDERABLES Final Re sult [facility] [address] [place] [address] * Vitamin D 25 Hydroxy (08/01/2025 8:40 AM EST) Pathologist [facility] Vitamin D 25 Hydroxy 45.5 20.0 - 80.0 ng/mL 08/01/2025 2:55 PM EST [facility] Blood Venous blood specimen / Unknown Venipuncture / Unknown 08/01/2025 8:40 AM EST 08/01/2025 1:46 PM EST Narrative [facility] - 08/01/2025 2:55 PM EST Testing performed on [employer] Mannequin, standardized against NIST SRM 2972. When testing [...] to 80 ng/mL Possible toxicity: >100 ng/mL [facility] BLOOD ORDERABLES Final Re sult Performing Organization Address [facility] Co de Phone Number [facility] [address] [place] [address] * Hepatitis B Surface Antigen (08/01/2025 8:40 AM EST) Pathologist [facility] Hepatitis B Surf Antigen Negative Negative 08/01/2025 4:44 PM EST [facility] Blood Venous blood specimen / Unknown Venipuncture / Unknown 08/01/2025 8:40 AM EST 08/01/2025 1:53 PM EST [facility] LAB BLOOD ORDERABLES Final Re sult Performing Organization Address [facility]/ZIP Co de Phone Number [facility] [address] [place] [address] * (ABNORMAL) CBC and Differential (08/01/2025 8:40 AM EST) WBC Count 6.82 3.70 - 10.30 10*3/uL LAB HEMATOLOGY METHOD 08/01/2025 1:58 PM EST [facility] RBC Count 4.86 4.60 - 6.10 10*6/uL LAB HEMATOLOGY METHOD 08/01/2025 1:58 PM EST [facility] HGB 13.5(L) 13.7 - 17.5 g/dL LAB HEMATOLOGY METHOD 08/01/2025 1:58 PM EST [facility] HCT 42.8 40.0 - 51.0 % LAB HEMATOLOGY METHOD 08/01/2025 1:58 PM [facility] Platelet Count 296 155 - 369 10*3/uL LAB HEMATOLOGY METHOD 08/01/2025 1:58 PM [facility] MCV 88 79 - 98 fL LAB HEMATOLOGY METHOD 08/01/2025 1:58 PM [facility] MCH 27.8 26.0 - 32.0 pg LAB HEMATOLOGY METHOD 08/01/2025 1:58 PM [facility] MCHC 31.5 30.7 - 35.5 g/dL LAB HEMATOLOGY METHOD 08/01/2025 1:58 PM [facility] RDW 12.6 11.5 - 14.5 % LAB HEMATOLOGY METHOD 08/01/2025 1:58 PM [facility] MPV 10.5 8.8 - 12.5 fL LAB HEMATOLOGY METHOD 08/01/2025 1:58 PM [facility] nRBC 0.0 <=0.0 per 100 WBCs LAB HEMATOLOGY METHOD 08/01/2025 1:58 PM [facility] Differential Type Automated LAB HEMATOLOGY METHOD 08/01/2025 1:58 PM [facility] Neutrophils % 58 % LAB HEMATOLOGY METHOD 08/01/2025 1:58 PM [facility] Lymphocytes % 34 % LAB HEMATOLOGY METHOD 08/01/2025 1:58 PM [facility] Monocytes % 6 % LAB HEMATOLOGY METHOD 08/01/2025 1:58 PM [facility] Eosinophils % 1 % LAB HEMATOLOGY METHOD 08/01/2025 1:58 PM [facility] Basophils % 1 % LAB HEMATOLOGY METHOD 08/01/2025 1:58 PM [facility] Immature Granulocytes % 0 % LAB HEMATOLOGY METHOD 08/01/2025 1:58 PM [facility] Neutrophils Absolute 3.90 1.60 - 6.10 10*3/uL LAB HEMATOLOGY METHOD 08/01/2025 1:58 PM [facility] Lymphocytes Absolute 2.34 1.20 - 3.90 10*3/uL LAB HEMATOLOGY METHOD 08/01/2025 1:58 PM [facility] Monocytes Absolute 0.42 0.30 - 0.90 10*3/uL LAB HEMATOLOGY METHOD 08/01/2025 1:58 PM EST [facility] Eosinophils Absolute 0.09 0.00 - 0.50 10*3/uL LAB HEMATOLOGY METHOD 08/01/2025 1:58 PM EST [facility] Basophils Absolute 0.05 0.00 - 0.10 10*3/uL LAB HEMATOLOGY METHOD 08/01/2025 1:58 PM EST [facility] Immature Granulocytes Absolute 0.02 0.00 - 0.06 10*3/uL LAB HEMATOLOGY METHOD 08/01/2025 1:58 PM EST [facility] Blood Venous blood specimen / Unknown Venipuncture / Unknown 08/01/2025 8:40 AM EST 08/01/2025 1:48 PM EST Narrative [facility] - 08/01/2025 1:58 PM EST Therapeutic decision making should be based on absolute values, rather than percentages. [employer] LAB BLOOD ORDERABLES Final Re sult Performing Organization Address City/[facility] Co de Phone Number [facility] [address] [place] [address] * Hemoglobin A1c (08/01/2025 8:40 AM EST) Hemoglobin A1c 5.3 <5.7 % 08/01/2025 5:15 PM EST [facility] Blood Venous blood specimen / Unknown Venipuncture / Unknown 08/01/2025 8:40 AM EST 08/01/2025 1:48 PM EST Narrative [facility] - 08/01/2025 5:15 PM EST HA1C Interpretive Data: Diagnosis of Diabetes: Diabetic > or = 6.5% Pre-diabetic 5.7 to 6.4% Non-diabetic < or = 5.6% Glycemic Targets for Type I and Type II Diabetics: Non- Adults <7.0% Adults <6.0% Children and Adolescents <7.5% Source: [place] [employer]. Standards of medical care in diabetes,2017. Diabetes Care.2017:40 (suppl 1):S1-S135. [employer] LAB BLOOD ORDERABLES Final Re sult [facility] [address] [place] [address] * Folate, Serum (08/01/2025 8:40 AM EST) Folate, Serum 12.1 >4.6 ng/mL 08/01/2025 2:35 PM EST [facility] Blood Venous blood specimen / Unknown Venipuncture / Unknown 08/01/2025 8:40 AM EST 08/01/2025 1:53 PM EST [facility] ORDER[facility] Final Re sult Performing Organization Address City/[facility]/ZIP Co de Phone Number [facility] [address] [place] [address] * Vitamin B12, Serum (08/01/2025 8:40 AM EST) Vitamin B12, Serum 907 210 - 1,033 pg/mL 08/01/2025 2:35 PM EST [facility] Blood Venous blood specimen / Unknown Venipuncture / Unknown 08/01/2025 8:40 AM EST 08/01/2025 1:53 PM EST [facility] BLOOD ORDERABLES Final Re sult Performing Organization Address City/[facility]/ZIP Co de Phone Number [facility] [address] [place] [address] * (ABNORMAL) Lipid Profile, Plasma (08/01/2025 8:40 AM EST) Cholesterol, Plasma 194 <200 mg/dL 08/01/2025 2:17 PM EST [facility] Comment: Cholesterol Reference Range (age >17 years): Desirable <200 mg/dL Borderline 200 to 239 mg/dL Undesirable >239 mg/dL HDL 75 >=40 mg/dL 08/01/2025 2:17 PM EST [facility] Comment: HDL Cholesterol Reference Ranges (age >17 years): Female, acceptable > or = 50 mg/dL Male, acceptable > or = 40 mg/dL Triglycerides, Plasma 25 <150 mg/dL 08/01/2025 2:17 PM EST [facility] Comment: Triglyceride Reference Range (age >17 years): Desirable: <150 mg/dL Borderline high: 150 to 199 mg/dL High: 200 to 499 mg/dL Very high: >499 mg/dL Increased risk of pancreatitis: >1000 mg/dL Cholesterol/HDL Ratio 3 08/01/2025 2:17 PM EST [facility] LDL, Calculated 114(H) <100 mg/dL 2:17 PM EST [facility] Comment: LDL Cholesterol Reference [...] 12 hours? Yes 08/01/2025 2:17 PM EST [facility] Blood Venous blood specimen / Unknown Venipuncture / Unknown 08/01/2025 8:40 AM EST 08/01/2025 1:47 PM EST us Leandra Kim [employer] LAB BLOOD ORDERABLES Final Re sult [facility] [address] [place] [address] * Comprehensive Metabolic Panel, Plasma (08/01/2025 8:40 AM EST) Glucose, Plasma 85 74 - 99 mg/dL 08/01/2025 2:17 PM EST [facility] BUN, Plasma 12 7 - 21 mg/dL 08/01/2025 2:17 PM EST [facility] Creatinine, Plasma 0.86 0.70 - 1.20 mg/dL 08/01/2025 2:17 PM EST [facility] BUN/Creatinine Ratio 14 08/01/2025 2:17 PM EST [facility] Sodium, Plasma 140 136 - 145 mmol/L 08/01/2025 2:17 PM EST [facility] Potassium, Plasma 3.9 3.6 - 4.9 mmol/L 08/01/2025 2:17 PM EST [facility] Chloride, Plasma 104 97 - 107 mmol/L 08/01/2025 2:17 PM EST [facility] CO2, Plasma 25 22 - 29 mmol/L 08/01/2025 2:17 PM EST [facility] Anion Gap 11 6 - 16 mmol/L 08/01/2025 2:17 PM EST [facility] Total Calcium, Plasma 9.9 8.9 - 10.2 mg/dL 08/01/2025 2:17 PM EST [facility] Total Protein 7.6 6.3 - 7.9 g/dL 08/01/2025 2:17 PM EST [facility] Albumin, Plasma 4.5 3.5 - 5.2 g/dL 08/01/2025 2:17 PM EST [facility] AST, Plasma 24 10 - 50 U/L 08/01/2025 2:17 PM EST [facility] ALT, Plasma 18 10 - 50 U/L 08/01/2025 2:17 PM EST [facility] Alkaline Phosphatase, Plasma 97 40 - 115 U/L 08/01/2025 2:17 PM EST [facility] Total Bilirubin, Plasma 0.7 0.2 - 1.1 mg/dL 08/01/2025 2:17 PM EST [facility] eGFRcr 122.5 mL/min/1.7 3m*2 08/01/2025 2:17 PM EST [facility] Comment:Reported eGFRcr in m L/min/1.73m2 is based the CKD-EPI 2020 equation that does not use a race coefficient. Blood Venous blood specimen / Unknown Venipuncture / Unknown 08/01/2025 8:40 AM EST 08/01/2025 1:47 PM EST us Leandra Kim APRN LAB BLOOD ORDERABLES Final Re sult [facility] [address] [place] [address] from Last 3 Months Insurance DORIAN Care Teams Clinical Supervisor Relationship Specialty Start Date End Date Leandra Kim APRN [address] [place] [address] [address] [place] [address] PCP - General Family Medicine 07/20/25
--- OUTSIDE RECORDS SUMMARY | 2025-09-22 11:27 | XMS_ITS | Encounter Summary ---
Author Organization [facility] Address [address] [place] [address] Care Team Providers Care Coating Operator Name Role Phone Leandra Kim APRN Primary Care Provider [phone] Encounter Details Date Type Department Care Team [...] any time in the past [address] [facility], were you homeless or living in a long-term (including now)? No 04/27/2025 Safety and Environment [...] as of this encounter Functional Status * Travel Screening Question Answer Date of Assessment Author Have you traveled internatio renetta or domestically in the last month? No 07/26/2025 2:36 PM EDT Mycha rt, Generic documented as of this encounter Mental Status * Travel Screening Question Answer Entry Date Author Have you traveled internatio renetta or domestically in the last month? No 07/26/2025 2:36 PM EDT Mycha rt, Generic documented in this encounter Plan of Treatment Upcoming Encounters Date Type Department Care Team (Late st Contact Info) Description 11/20/2025 9:00 AM EST Office Visit [facility] Primary and Ur[facility] Care [address] [place] [phone] Leandra Kim APRN [address] [facility] [address] [place] [address] documented as of this encounter [...] documented as of this encounter Care Teams Coating Operator Relationship Specialty Start Date End Date Leandra Kim APRN [address] [facility] [address] [place] [phone] PCP - General Family Medicine 07/20/25 documented as of this encounter
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
--- OUTSIDE RECORDS SUMMARY | 2025-09-22 11:27 | XMS_ITS | Encounter Summary ---
Author Organization [facility] Address [address] [place] [address] Care Team Providers Care Fretted String Instrument Repairer Name Role Phone Leandra Kim APRN Primary Care Provider [phone] Encounter Details Date Type Department Care Team [...] any time in the past 12 m [facility], were you homeless or living in a chcf (including now)? No 04/27/2025 Safety and Environment [...] In the past 12 months has e electric, gas, oil, or water company [...] as of this encounter Functional Status * Communicable Disease Screening Question Answer Date of Assessment Author Have you been in contact wit h someone who was sick? No / Unsure 08/01/2025 8:29 AM Ahsan Almodovar Do you have any of the follo wing new or worsening symptoms? None of these 08/01/2025 8:29 AM Chino Almodovar * Travel Screening Question Answer Date of Assessment Author Have you traveled internatio renetta or domestically in the last month? No 08/01/2025 8:29 AM Ahsan Almodovar documented as of this encounter Mental Status * Communicable Disease Screening Question Answer Entry Date Author Have you been in contact wit h someone who was sick? No / Unsure 08/01/2025 8:29 AM Ahsan Almodovar Do you have any of the follo wing new or worsening symptoms? None of these 08/01/2025 8:29 AM Chino Almodovar * Travel Screening Question Answer Entry Date Author Have you traveled internatio renetta or domestically in the last month? No 08/01/2025 8:29 AM Ahsan Almodovar documented in this encounter Plan of Treatment Upcoming Encounters Date Type Department Care Team (Late st Contact Info) Description 11/20/2025 9:00 AM EST Office Visit [facility] [address] [place] [phone] Leandra Kim APRN [address] [place] [phone] documented as of this encounter Visit Diagnoses [...] documented as of this encounter Care Teams Fretted String Instrument Repairer Relationship Specialty Start Date End Date Leandra Kim APRN [address] [place] [address] PCP - General Family Medicine 07/20/25 documented as of this encounter
--- OUTSIDE RECORDS SUMMARY | 2025-09-22 11:27 | XMS_ITS | Clinical Summary ---
Author Organization [facility] Address [address] [place] [address] Care Team Providers Care Band Shover Name Role Phone Unavailable Primary Care Provider [...]
--- OUTSIDE RECORDS SUMMARY | 2025-09-22 11:27 | XMS_ITS | Clinical Summary ---
Author Organization [facility] Address [address] [place] [address] Care Team Providers Care Vp Securities Name Role Phone Provider, No Known Primary [...] complete this topic Insurance [id number] Leonard [facility] [place] [address] [facility] Care Teams Vp Securities Relationship Specialty Start Date End Date Provider, [place] [address] PCP - General 01/25/24
--- OUTSIDE RECORDS SUMMARY | 2025-09-22 11:27 | XMS_ITS | Encounter Summary ---
Author Organization [facility] Address [address] [place] [address] Care Team Providers Care Ammonia Print Operator Name Role Phone Jolynn Pop DO Primary Care Provider [phone] Encounter Details Date Type Department Care Team (Latest Contact Info) Description 03/24/2008 Specimen Collection [facility] [address] [place] [phone] Clinical Labs, [facility] Other Abnormal Glucose; Hypopotassemia Social History Tobacco Use Types Packs/Day Years Used Date Smoking Tobacco: Never Assessed Comments Unknown Sex and Gender Information Value Date Recorded Sex Assigned at Female 06/14/2018 5:02 PM EDT Legal Sex Female 5:25 AM EST Gender Identity Transgender Male 06/14/2018 5:02 PM EDT Sexual Orientation Straight 06/14/2018 5: 02 PM EDT documented as of this encounter Plan of Treatment Not on file documented as of this encounter Procedures Procedure Name Priority Date/Time Associated Diagnosis Comments HDL Routine 03/24/2008 9:33 AM EDT DIFFERENTIAL Routine 03/24/2008 9:33 AM EDT CBC (WITH PLATELETS) Routine 03/24/2008 9:33 AM EDT TSH Routine 03/24/2008 9:33 AM EDT RENAL (KIDNEY) PROFILE Routine 03/24/2008 9:33 AM EDT HEPATIC PROFILE (NO GGT) Routine 03/24/2008 9:33 AM EDT LIPID PRO Routine 03/24/2008 9:33 AM EDT INSULIN Routine 03/24/2008 9:33 AM EDT GLUCOSE BLOOD Routine 03/24/2008 9:33 AM EDT documented in this encounter Results * INSULIN (03/24/2008 9:33 AM EDT) INSULIN 18.0 uUn/ml [facility] Comment: (06/25/01 -- Current) INSULIN REFERENCE RANGES UNITS: uU/ml * INFANTS AND PREPUBERTAL CHILDREN: FASTING <2 - 13 PUBERTAL CHILDREN AND ADULTS: FASTING <2 - 17 ADULTS: 2 HOURS POST MEAL 7.6 - 26.0 * 2 HOURS POST GLUCOSE 15.0 - 53.0 CONTACT DIVISION OF ENDOCRINOLOGY FOR ASSISTANCE IN RESULT INTERPRETATION AND ADDITIONAL INFORMATION ON INSULIN LEVELS DURING ORAL GLUCOSE TOLERANCE TESTS. * 03/24/2008 9:33 AM EDT 03/24/2008 9:33 AM EDT [facility] Clinical Labs CHEMISTRY ORDERABLES Final R esult [facility] * HDL (03/24/2008 9:33 AM EDT) HDL CHOLESTEROL 61 26 - 77 MG/DL [facility] 03/24/2008 9:33 AM EDT 03/24/2008 9:33 AM EDT [facility] Clinical Labs CHEMISTRY ORDERABLES Final R esult [facility] * LIPID PRO (03/24/2008 9:33 AM EDT) LDL CHOLESTEROL 127 35 - 135 MG/DL [facility] TRIGLYCERIDES 46 26 - 123 MG/DL [facility] CHOLESTEROL LEVEL 197 107 - 245 MG/DL [facility] 03/24/2008 9:33 AM EDT 03/24/2008 9:33 AM EDT [facility] Clinical Labs CHEMISTRY ORDERABLES Final R esult Performing Organization Address City/[facility]/ZIP Co de Phone Number [facility] * TSH (03/24/2008 9:33 AM EDT) Pathologist [facility] TSH 1.70 0.51 - 4.00 mIU/ML [facility] 03/24/2008 9:33 AM EDT 03/24/2008 9:33 AM EDT [facility] Clinical Labs CHEMISTRY ORDERABLES Final R esult Performing Organization Address [facility] de Phone Number [facility] * DIFFERENTIAL (03/24/2008 9:33 AM EDT) Pathologist [facility] SEGS 47 40 - 59 % [facility] LYMPHS 43 38 - 46 % [facility] MONOCYTE 8 0 - 8 % [facility] EOSINOPHIL 2 0 - 4 % [facility] BASOPHILS 1 0 - 1 % [facility] NEUTROPHIL ABSOLUTE 2.91 1.50 - 8.00 K/UL [facility] LYMPH ABSOLUTE 2.67 1.50 - 6.80 K/UL [facility] MONO ABSOLUTE 0.50 0.00 - 0.80 K/UL [facility] EOSINOPHIL ABS 0.12 0.00 - 0.50 K/UL [facility] BASO ABSOLUTE 0.06 0.00 - 0.10 K/UL [facility] MICROCYTES RARE [facility] 03/24/2008 9:33 AM EDT 03/24/2008 9:33 AM EDT [facility] Clinical Labs HEMATOLOGY ORDERABLES Final Result [facility] * CBC (WITH PLATELETS) (03/24/2008 9:33 AM EDT) WBC 6.2 4.5 - 13.5 K/UL [facility] RBC 4.92 4.00 - 5.20 M/UL [facility] HGB 13.3 11.5 - 15.5 G/DL [facility] HCT 39.2 35.0 - 45.0 % [facility] MCV LEVEL 79.6 77.0 - 95.0 fL [facility] MCH LEVEL 27.1 25.0 - 33.0 pg [facility] MCHC LEVEL 34.0 31.0 - 37.0 G/DL [facility] RDW 12.0 <14.7 % [facility] PLATELET 346 135 - 466 K/UL [facility] 03/24/2008 9:33 AM EDT 03/24/2008 9:33 AM EDT [facility] Clinical Labs HEMATOLOGY ORDERABLES Final Result Performing Organization Address [facility] de Phone Number [facility] * (ABNORMAL) RENAL (KIDNEY) PROFILE (03/24/2008 9:33 AM EDT) SODIUM LEVEL 140 134 - 143 MMOL/L [facility] POTASSIUM LEVEL 4.4 3.3 - 4.6 MMOL/L [facility] CHLORIDE LEVEL 102 96 - 109 MMOL/L [facility] CO2 LEVEL 27 22 - 30 MMOL/L [facility] ANION GAP 11 4 - 15 MMOL/L [facility] BUN 19(H) 7 - 17 MG/DL [facility] CREATININE LEVEL 0.7 0.2 - 0.7 MG/DL [facility] B/C RATIO 27(H) <25 [facility] 03/24/2008 9:33 AM EDT 03/24/2008 9:33 AM EDT [facility] Clinical Labs CHEMISTRY ORDERABLES Final R esult [facility] * LIVER PROFILE (03/24/2008 9:33 AM EDT) ALBUMIN LEVEL 4.3 3.4 - 5.2 G/DL [facility] TOTAL PROTEIN LEVEL 7.3 5.9 - 8.1 GM/DL [facility] AST 49 15 - 60 UNIT/L [facility] ALT 18 10 - 35 UNIT/L [facility] ALK PHOS 262 150 - 420 UNIT/L [facility] BILI CONJUGATED 0.0 0.0 - 0.1 MG/DL [facility] BILI UNCONJUGATED 0.5 0.0 - 1.1 MG/DL [facility] A/G RATIO 1 [facility] GLOBULIN 3.0 GM/DL [facility] GGT 24 6 - 30 UNIT/L [facility] 03/24/2008 9:33 AM EDT 03/24/2008 9:33 AM EDT [facility] Clinical Labs CHEMISTRY ORDERABLES Final R esult [facility] * GLUCOSE BLOOD (03/24/2008 9:33 AM EDT) GLUCOSE LEVEL 89 65 - 115 MG/DL [facility] 03/24/2008 9:33 AM EDT 03/24/2008 9:33 AM EDT [facility] Clinical Labs CHEMISTRY ORDERABLES Final R esult [facility] documented in this encounter Visit Diagnoses Diagnosis Other abnormal glucose Hypopotassemia documented in this encounter Care Teams Ammonia Print Operator Relationship Specialty Start Date End Date Jolynn Pop, [address] [place], [place] [address] PCP - General 09/07/24 documented as of this encounter
--- OUTSIDE RECORDS SUMMARY | 2025-09-22 11:27 | XMS_ITS | Encounter Summary ---
Author Organization [facility] Address [address] [place] [address] Care Team Providers Care Lavender Farm Worker Name Role Phone Leandra Kim APRN Primary Care Provider [phone] Encounter Details Date Type Department Care Team (Late st Contact Info) Description 08/02/2025 Results Follow-Up [facility] [address] [place] [address] Leandra Kim APRN [address] [facility] [address] [place] [address] Social History Tobacco Use Types [...] any time in the past 12 m [facility], were you homeless or living in a group home (including now)? No 04/27/2025 Safety and [...] In the past 12 months has e [employer], gas, oil, or water company threatened to [...] Description 11/20/2025 9:00 AM EST Office Visit [facility] [address] [place] [phone] Leandra Kim APRN [address] [place] [address] documented as of this encounter [...] documented as of this encounter Care Teams Lavender Farm Worker Relationship Specialty Start Date End Date Leandra Kim APRN [address] [facility] [address] [place] [address] PCP - General Family Medicine 07/20/25 documented as of this encounter
--- OUTSIDE RECORDS SUMMARY | 2025-09-22 11:27 | XMS_ITS | Encounter Summary ---
Author Organization [facility] Address [address] [place] [address] Care Team Providers Care Kitchen Cleaner Name Role Phone Leandra Kim APRN Primary Care Provider [phone] Encounter Details Date Type Department Care Team (Late st Contact Info) Description 08/07/2025 Telephone [facility] [address] [place] [address] Sheree Matson RN [facility] None Social History Tobacco Use Types Packs/Day Years [...] any time in the past 12 m [facility], were you homeless or living in [...] Description 11/20/2025 9:00 AM EST Office Visit [facility] [address] [place] [phone] Leandra Kim APRN [address] [facility] [address] [place] [address] documented as of this encounter [...] documented as of this encounter Care Teams Kitchen Cleaner Relationship Specialty Start Date End Date Leandra Kim APRN [address] [facility] [address] [place] [phone] PCP - General Family Medicine 07/20/25 documented as of this encounter
[2025-09-22 20:38] LABS: Coronavirus 19, PCR Not Detected (NotDetected); Influenza A, PCR Not Detected (NotDetected); Influenza B, PCR Not Detected (NotDetected)
== END 2025-09-22 23:59 ==
LOC: RAD 11:25
PROVIDERS: PCP Nurse Practitioner Family; Visit Provider Nurse Practitioner
DX: R09.89 Other specified symptoms and signs involving the circulatory and respiratory systems (principal)
CPT/HCPCS: 71046; 87631